=== PATIENT | female | born 1940 | race Caucasian/White ===

== ENCOUNTER → 2017-08-21 | Outpatient (CLI) | payer MEDICARE ==
[~2017-08-21] MED LIST: ASCO10004 PO; ASPI81CH6 CHEW; ASPI81TA82 PO; BIOT10TA PO; CALC500 PO; D400400C PO; DULO1CAP PO; FERR325T18 PO; FOLI1 PO; FOLI800T PO; MAGN400T2 PO; MELO15TA20 PO; METH500T3 PO; METO25TA3 PO; METO50TA PO; PANT40TA3 PO; PROT40TA PO; QUET25 PO; VITA10002 PO; VITA500T4 PO
== END ==
LOC: HRAD 10:52
PROVIDERS: ATTEND Family Medicine
DX: Z00.8 Encounter for other general examination (principal)

== ENCOUNTER 2017-08-22 06:59 | Day surgery (SDC) | payer MEDICARE ==
[~2017-08-22] VITALS: Ht 157.5 cm; Wt 47.3 kg
[~2017-08-22 06:59] MED LIST changes: -ASPI81CH6 CHEW; -BIOT10TA PO; -DULO1CAP PO; -FERR325T18 PO; -FOLI800T PO; -MAGN400T2 PO; -MELO15TA20 PO; -METH500T3 PO; -METO25TA3 PO; -PANT40TA3 PO; -VITA500T4 PO
[2017-08-22] MEDS ORDERED: VITA500T4 PO (07:32)
[2017-08-22] MEDS ORDERED: BIOT10TA PO (07:34)
[2017-08-22 07:35] VITALS: BP 144/98; PULSE 62; RESP 18; TEMP 97.8; O2SAT 94
[2017-08-22] MEDS ORDERED: FERR325T18 PO (07:35)
[2017-08-22] MEDS ORDERED: DULO1CAP PO (07:36)
[2017-08-22] MEDS ORDERED: FOLI800T PO (07:37)
[2017-08-22] MEDS ORDERED: METH500T3 PO (07:38)
[2017-08-22] MEDS ORDERED: MELO15TA20 PO (07:39)
[2017-08-22] MEDS ORDERED: PANT40TA3 PO (07:40)
[2017-08-22] MEDS ORDERED: ASPI81CH6 CHEW (07:40)
[2017-08-22] MEDS ORDERED: METO25TA3 PO (07:42)
[2017-08-22] MEDS ORDERED: MAGN400T2 PO (07:43)
[2017-08-22] MEDS ORDERED: LACTATED RINGER'S 1000 ML IV PRN (07:45)
[2017-08-22] MEDS ORDERED: CHLORHEXIDINE GLUCONATE 2 % 1 PACK (2 CLOTHS) TOPICAL PRN (07:45)
[2017-08-22] MEDS ORDERED: METOPROLOL TARTRATE 25 MG TAB PO PRN (07:45)
[2017-08-22] MEDS ORDERED: SODIUM CHLORID 0.9% 500 ML IV PRN (07:45)
[2017-08-22] MEDS ORDERED: ceFAZolin 2 GM PREMIX 50 ML IV SCH (07:45)
[2017-08-22] MEDS ORDERED: SODIUM CHLOR 0.9% 1000 ML INJ 1,000 ML IV SCH (08:00)
[2017-08-22 08:57] LABS: BICARBONATE 25.4 MEQ/L (21.0-32.0); CALCIUM 8.7 MG/DL (8.5-10.1); CREATININE 0.66 MG/DL (0.50-1.00)
[2017-08-22 09:44] LABS: AUTOMATED NEUTROPHIL # 2.1 TH/MM3 (1.8-7.7); BASOPHIL % 1.1 % (0.0-2.0); EOSINOPHIL # 0.2 TH/MM3 (0-0.4); EOSINOPHIL % 3.9 % (0.0-4.0); HEMATOCRIT 43.1 % (35.0-46.0); HEMOGLOBIN 14.2 GM/DL (11.6-15.3); LYMPH % 31.6 % (9.0-44.0); LYMPHOCYTE # 1.3 TH/MM3 (1.0-4.8); MEAN CELL VOLUME 103.6 FL (80.0-100.0); MEAN CORPUSCULAR HEMOGLOBIN 34.2 PG (27.0-34.0); MEAN PLATELET VOLUME 8.1 FL (7.0-11.0); MONO % 12.4 % (0.0-8.0); MONOCYTE # 0.5 TH/MM3 (0-0.9); PLATELET COUNT 252 TH/MM3 (150-450); RED BLOOD COUNT 4.16 MIL/MM3 (4.00-5.30); WHITE BLOOD COUNT 4.2 TH/MM3 (4.0-11.0)
[2017-08-22] MEDS ORDERED: fentaNYL CITRATE 250 MCG/5 ML AMP ONE (09:55)
--- NOTE | 2017-08-22 12:02 | PD.RAD ---
Post Procedure Progress Note Pre Procedure Diagnosis: (1) Compression fracture of body of thoracic vertebra Post Procedure Diagnosis: (1) Compression fracture of body of thoracic vertebra Procedure Date: Aug 22, 2017 Supervising Radiologist: Darwin Jacobson Anesthesia: General Plan of Activity Patient to Unit: PACU Patient Condition: Good See PACS Report for procedural detail/treatment Darwin Jacobson MD Aug 22, 2017 12:02
--- NOTE | 2017-08-22 12:06 | RADRPT ---
EXAM DATE/TIME: 08/22/2017 09:44 [facility] COMPARISON: No previous studies available for comparison. INDICATIONS : Patient needs access for labs and Kyphoplasty. MEDICAL HISTORY : ETOH 2. cirrohis 3. liver failure 4. compression fxs of spine. SURGICAL HISTORY : 1. C section 2. ORIF ENCOUNTER: Initial ACUITY: 1 day PAIN SCORE: 0/10 IMAGE SERIES: 1 ACCESS: Right brachial vein DEVICE(S): 1.) 3/4 Togolese Dilator PROCEDURE : 1. Ultrasound guided venous access. The risks, benefits and alternatives to the procedure were explained and verbal and written consent w as obtained. The site was prepped in sterile fashion. Full sterile technique was used, including ca p, mask, sterile gloves and gown and a large sterile sheet. Hand hygiene and 2% chlorhexidine and/or betadine/alcohol prep was utilized per protocol for cutaneous antisepsis. Sterile gel and sterile p robe cover were utilized for ultrasound guidance. The skin and subcutaneous tissues were infiltrate d with local anesthetic solution. With ultrasound guidance the prescribed vein was punctured for venous access. A 4 Togolese dilator was placed and was flushed and locked with heparin. The patient tolerated procedure well and there were n o complications. CONCLUSION: Uncomplicated ultrasound guided venous access. Darwin Jacobson MD on August 22, 2017 at 12:04 Board Certified Radiologist. This report was verified electronically.
--- NOTE | 2017-08-22 12:06 | RADRPT ---
EXAM DATE/TIME: 08/22/2017 09:42 [facility] COMPARISON: KYPHOPLASTY, FLUORO GUIDED, August 22, 2017, 0:00. INDICATIONS : Patient with history of fractures of T6 and T8. MEDICAL HISTORY : 1. ETOH 2. cirrohsis 3. Former smoker 4. liver failure SURGICAL HISTORY : 1. c section 2. ORIF ENCOUNTER: Initial ACUITY: 2 months PAIN SCORE: 3/10 LOCATION: back FLUORO TIME: 13.8 minutes IMAGE SERIES: 0 LEVEL: T6 T8 Prophylactic antibiotics were administered with appropriate pre-procedure timing. DEVICE: 1. 9 cc AVAMax bone cement Anesthesia and pain control was provided by the Anesthesia department. PROCEDURE : 1. Fluoroscopically-guided T6 and T8 kyphoplasty The risks, benefits and alternatives to the procedure were explained and verbal and written consent w as obtained. The site was prepped in sterile fashion. Full sterile technique was used, including ca p, mask, sterile gloves and gown and a large sterile sheet. Hand hygiene and 2% chlorhexidine and/or betadine/alcohol prep was utilized per protocol for cutaneous antisepsis. The skin and subcutaneous tissues were infiltrated with local anesthetic solution. With fluoroscopic guidance via the above described approach access was gained to the vertebral body a t T6 and T8. Kyphoplasty was performed with cavity creation as above. The prescribed cement volume was placed. Post procedure images demonstrate cement confined to the vertebral body. Conscious sedation was performed with the prescribed dosages and duration as above in the presence of an independent trained radiology nurse to assist in the monitoring of the patient. EKG and oximetry remained stable throughout the procedure. The patient tolerated the procedure well and there were n o complications. The patient was sent to post anesthesia recovery in stable condition. CONCLUSION: Uncomplicated T6 and T8 kyphoplasty as above. Darwin Jacobson MD on August 22, 2017 at 12:02 Board Certified Radiologist. This report was verified electronically.
[2017-08-22] MEDS ORDERED: DO NOT ADM ANY ANTICOAGULANT DRUGS PRN (12:07)
[2017-08-22 12:50] VITALS: BP 139/87; PULSE 64; RESP 18; TEMP 97.5; O2SAT 95
[2017-08-22 13:05] VITALS: BP 114/66; PULSE 63; RESP 18
[2017-08-22 13:35] VITALS: BP 141/84; PULSE 56; RESP 18; O2SAT 93
--- NOTE | 2017-08-22 20:55 | EKG ---
Date Performed: 08/22/2017 Time Performed: 07:44:31 PTAGE: 77 years EKG: Sinus rhythm LOW QRS VOLTAGE IN PRECORDIAL LEADS RIGHT BUNDLE BRANCH BLOCK RBBB IS NEW COMPARED TO PRIOR TRACING ABNORMAL ECG PREVIOUS TRACING : 03/24/2015 15.13 DOCTOR: Jeremi Rivas Interpretating Date/Time 08/22/2017 20:53:40
== END 2017-08-22 14:30 | disposition home or self-care (01) ==
LOC: HROP 06:59 → HRIP 07:00 → HROP 14:30
PROVIDERS: ATTEND Family Medicine
DX: S22.050A Wedge compression fracture of T5-T6 vertebra, initial encounter for closed fracture (principal); S22.060A Wedge compression fracture of T7-T8 vertebra, initial encounter for closed fracture; K72.90 Hepatic failure, unspecified without coma; K74.60 Unspecified cirrhosis of liver; F10.10 Alcohol abuse, uncomplicated; Z87.891 Personal history of nicotine dependence; Z01.818 Encounter for other preprocedural examination; Z01.810 Encounter for preprocedural cardiovascular examination
CPT/HCPCS: 01936; 22513; 22515; 76937; 80048; 85025; 93005; J3010; J7030

== ENCOUNTER 2017-09-18 13:03 | Day surgery (SDC) | payer MEDICARE ==
[~2017-09-18 13:03] MED LIST changes: -ASCO10004 PO; +ASPI81CH6 CHEW; -ASPI81TA82 PO; +BIOT10TA PO; -CALC500 PO; -D400400C PO; +DULO1CAP PO; +FERR325T18 PO; -FOLI1 PO; +FOLI800T PO; +MAGN400T2 PO; +MELO15TA20 PO; +METH500T3 PO; +METO25TA3 PO; -METO50TA PO; +PANT40TA3 PO; -PROT40TA PO; -QUET25 PO; -VITA10002 PO; +VITA500T4 PO
[2017-09-18 13:45] VITALS: BP 110/73; PULSE 77; RESP 18; TEMP 98; O2SAT 97
--- NOTE | 2017-09-18 16:47 | RADRPT ---
EXAM DATE/TIME: 09/18/2017 13:49 [facility] COMPARISON : No previous studies available for comparison. INDICATIONS : f/u kyphoplasty OBJECTIVE: Temperature: 98.0 Heart Rate: 77 Blood Pressure: 110/73 Respiratory: 18 Oximetry: 97 PNEUMONIA VACCINE: HISTORY OF PRESENT ILLNESS: 77-year-old female with history of T6 and T8 compression fractures status post kyphoplasty on 08/23/19 18. Patient reports progressive back pain at the bra line level despite the kyphoplasty. She denies a ny radiculopathy. No bowel or urinary incontinence. On physical examination she has moderate tenderne ss in the mid to upper thoracic spine roughly corresponding to T7 spinous process. ASSESSMENT: 77-year-old female with osteoporosis and T6 and T8 compression fractures status post kyphoplasty with persistent pain. She has moderate tenderness in the mid to upper thoracic spine corresponding to rou ghly T7 spinous process. Pain concern that she had an interval acute adjacent level compression fract ure. Will request MRI examination of the thoracic spine for further evaluation. PLAN: MRI thoracic spine to evaluate for interval acute thoracic spine fracture. TIME SPENT: 15 minutes. Darwin Jacobson MD on September 18, 2017 at 16:41 Board Certified Radiologist. This report was verified electronically.
== END 2017-09-18 14:45 | disposition home or self-care (01) ==
LOC: HROP 13:03 → HRIP 13:04 → HROP 14:45
PROVIDERS: ATTEND Radiology Diagnostic Radiology
DX: Z09 Encounter for follow-up examination after completed treatment for conditions other than malignant neoplasm (principal)

== ENCOUNTER 2017-12-15 14:37 | Inpatient (IN) ==
[2017-12-15] MEDS ORDERED: Sod Chloride 0.9% Inj 1,000 ML IV.SIG ONE (15:39)
[2017-12-15] MEDS ORDERED: Thiamine Inj 100 MG in Sodium Chlor 0.9% Inj 100 ML IV.SIG ONE (15:40)
--- NOTE | 2017-12-15 15:55 | ED ---
HPI General Chief complaint: Alcohol Stated complaint: ETOH Time Seen by Provider: 12/15/17 15:39 Source: patient Mode of arrival: ambulatory Limitations: no limitations History of Present Illness HPI narrative: 77yo F with PMH of alcohol abuse was brought in by EVAC for alcohol intoxication. As per EVAC, pt drank 7 vodka and could not get her to come into the house so he called [facility]. Pt denies any head trauma or fall. Pt was seen by Dr. Wood for her left hand ulcer and has a follow up with specialist. Pt now complains of right 3rd digit pain for 2 weeks. Pt is clinically intoxicated but moves all extremities. Pt tells the medical staff to go away. History is limited secondary to alcohol intoxication. Related Data Allergies Allergy/AdvReac Type Severity Reaction Status Date / Time Iodinated Contrast- Oral and Allergy Severe Unverified 09/18/17 13:46 IV Dye oxytocin Allergy Severe Unverified 09/18/17 13:46 Review of Systems ROS Unobtainable All other systems reviewed negative except as stated in HPI [facility] Medical History Medical History Medical history unknown (Acute) Social History Social History Substance History: Active Abuse Second Hand Smoke Exposure: No Smoking Status: Never smoker Tobacco Type: Cigarettes How Often Do You Have a Drink Containing Alcohol: 4 or more times a week Recent Travel in [facility] within the Last 8 Weeks: No Recent Out of Country Travel within the Last 8 Weeks: No Substance Abuse Detail Alcohol: Substance Use Status: Active Route Used Substance Abuse: By Mouth Immunization History Tetanus Immunization: Unable to Assess Hx Influenza Vaccine This Season: Unable to Assess Exam Narrative Exam Narrative: GENERAL: 77yo F intoxicated. SKIN: Focused skin assessment warm/dry. HEAD: Atraumatic. Normocephalic. EYES: Pupils equal and round at 4mm bilaterally. ENT: No nasal bleeding or discharge. Mucous membranes pink and moist. NECK: Trachea midline. No JVD. CARDIOVASCULAR: Regular rate and rhythm. No murmur appreciated. RESPIRATORY: No accessory muscle use. Clear to auscultation. Breath sounds equal bilaterally. GASTROINTESTINAL: Abdomen soft, non-tender, nondistended. MUSCULOSKELETAL: Right hand: +Discoloration in distal 3rd digit with ttp. Radial pulse 2+. Sensation intact. Left hand: +left 3rd digit ulcer with black eschar. Discoloration distal digits 3-5. Radial pulse not palpable, EVAC said that is old. NEUROLOGICAL: Awake and alert. No obvious cranial nerve deficits. Motor grossly within normal limits. Normal speech. PSYCHIATRIC: Appropriate mood and affect; insight and judgment normal. Course Initial Documented Vital Signs Temperature 98.9 F 12/15/17 15:28 Pulse Rate 96 H 12/15/17 15:28 Respiratory Rate 16 12/15/17 15:28 Blood Pressure 84/57 L 12/15/17 15:28 Last Documented Vital Signs Temperature 98.8 F 12/15/17 17:42 Pulse Rate 89 12/15/17 17:42 Respiratory Rate 16 12/15/17 17:42 Blood Pressure 119/78 12/15/17 17:42 Pulse Oximetry 100 12/15/17 17:42 Medical Decision Making MDM Narrative Medical decision making narrative: 77yo F was brought in as alcohol intoxication. Pt has left hand ulcer and discoloration that the EVAC said is old and has been work up. Pt was complaining of right hand pain today and xray right hand showed no acute findings. Pt initially was verbally aggressive and did not want a full exam but then later on allowed me to examine her. She is clinically intoxicated. Labs reviewed, no leukocytosis. Glucose is low at 45. Pt given juice. Blood alcohol is elevated at 352. Discussed with Dr. Wood who knows patient well and he reviewed her record and said that she saw Cristiane [employer] on 12/08/17 in emergency clinic and was referred urgently to Dr. Odonnell from vascular surgery the next time because she was concern about her left hand. Pt said she has gangrene. Unknown how reliable this is. Discussed with Dr. Wood and he recommends admission and vascular consult given pt is unreliable and this may be limb threatening. Discussed with Dr. Garza and accepted to his service. Differential Diagnosis Differential Diagnosis: Alcohol intoxication vs. peripheral vascular disease vs. raynaud syndrome vs. ischemic ulcer Lab Data Result diagrams: 12/15/17 15:19 12/15/17 15:19 Lab Results 12/15/17 12/15/17 12/15/17 Range/Units 15:19 15:19 17:51 WBC 7.0 (4.0-11.0) th/mm3 RBC 2.70 L (4.00-5.30) mil/mm3 Hgb 9.8 L (11.6-15.3) gm/dL Hct 28.0 L (35.0-46.0) % MCV 103.8 H (80.0-100.0) fL MCH 36.2 H (27.0-34.0) pg MCHC 34.9 (32.0-36.0) % RDW 15.9 (11.6-17.2) % Plt Count 195 (150-450) th/mm3 MPV 8.3 (7.0-11.0) fL Neut % (Auto) 60.5 (16.0-70.0) % Lymph % (Auto) 26.1 (9.0-44.0) % Lamb % (Auto) 10.7 H (0.0-8.0) % Eos % (Auto) 1.7 (0.0-4.0) % Baso % (Auto) 1.0 (0.0-2.0) % Neut # (Auto) 4.2 (1.8-7.7) th/mm3 Lymph # (Auto) 1.8 (1.0-4.8) th/mm3 Lamb # (Auto) 0.7 (0.0-0.9) th/mm3 Eos # (Auto) 0.1 (0.0-0.4) th/mm3 Baso # (Auto) 0.1 (0.0-0.2) th/mm3 WBC Differential . Differential Comment Auto diff final Sodium 138 (136-145) meq/L Potassium 4.4 (3.5-5.1) meq/L Chloride 101 (98-107) meq/L Carbon Dioxide 20.7 L (21.0-32.0) meq/L Anion Gap 16 H (5-15) meq/L BUN 12 (7-18) mg/dL Creatinine 0.76 (0.50-1.00) mg/dL Estimated GFR 74 L (>89) mL/min POC Glucose 56 L (68-110) mg/dl Random Glucose 45 L* (74-106) mg/dL Calcium 7.9 L (8.5-10.1) mg/dL Magnesium 1.5 (1.5-2.5) mg/dL Serum Alcohol 352 H (0-5) mg/dL 12/15/17 Range/Units 18:52 WBC (4.0-11.0) th/mm3 RBC (4.00-5.30) mil/mm3 Hgb (11.6-15.3) gm/dL Hct (35.0-46.0) % MCV (80.0-100.0) fL MCH (27.0-34.0) pg MCHC (32.0-36.0) % RDW (11.6-17.2) % Plt Count (150-450) th/mm3 MPV (7.0-11.0) fL Neut % (Auto) (16.0-70.0) % Lymph % (Auto) (9.0-44.0) % Lamb % (Auto) (0.0-8.0) % Eos % (Auto) (0.0-4.0) % Baso % (Auto) (0.0-2.0) % Neut # (Auto) (1.8-7.7) th/mm3 Lymph # (Auto) (1.0-4.8) th/mm3 Lamb # (Auto) (0.0-0.9) th/mm3 Eos # (Auto) (0.0-0.4) th/mm3 Baso # (Auto) (0.0-0.2) th/mm3 WBC Differential Differential Comment Sodium (136-145) meq/L Potassium (3.5-5.1) meq/L Chloride (98-107) meq/L Carbon Dioxide (21.0-32.0) meq/L Anion Gap (5-15) meq/L BUN (7-18) mg/dL Creatinine (0.50-1.00) mg/dL Estimated GFR (>89) mL/min POC Glucose 108 (68-110) mg/dl Random Glucose (74-106) mg/dL Calcium (8.5-10.1) mg/dL Magnesium (1.5-2.5) mg/dL Serum Alcohol (0-5) mg/dL Imaging Data Radiologist's impression: Hand X-Ray 12/15/17 15:50 CONCLUSION: No acute findings. Mild to moderate degenerative disc disease. Discharge Plan Discharge Disposition Patient Disposition: 30 Still Patient Physicians Team ED Provider: Jenny Epperson Primary Care Provider: Daniel Wood Attending Provider: Boyd Frias Status ED Status: Left Department Discharge Information Discharge Date/Time: 12/15/17 20:05
[2017-12-15] MEDS ORDERED: Acetaminophen 500 MG Tablet PO ONE (16:08)
--- NOTE | 2017-12-15 16:13 | XR ---
EXAM DATE: 12/15/2017 4:09 PM EDT AGE/SEX: 77 years / Female INDICATIONS: Sore right 3rd digit. CLINICAL DATA: This is the patient's initial encounter. Patient reports that signs and symptoms have been present for 1 day and indicates a pain score of Nonresponsive. MEDICAL/SURGICAL HISTORY: . pt seemed confused, unable to obtain. . unable to obtain. COMPARISON: No prior exams available for comparison. FINDINGS: Bony structures are intact and in normal alignment. Osseous density is normal. Soft tissues are unre markable. No radiopaque foreign bodies seen. CONCLUSION: No acute findings. Mild to moderate degenerative disc disease. Electronically signed by: Wolf Burris MD 12/15/2017 4:11 PM EDT
[2017-12-15 16:36] LABS: Baso # (Auto) 0.1 th/mm3 (0.0-0.2); Eos # (Auto) 0.1 th/mm3 (0.0-0.4); Eos % (Auto) 1.7 % (0.0-4.0); Hemoglobin 9.8 gm/dL (11.6-15.3); Lymph # (Auto) 1.8 th/mm3 (1.0-4.8); Lymph % (Auto) 26.1 % (9.0-44.0); Mean Corpuscular HGB Conc 34.9 % (32.0-36.0); Mean Corpuscular Hemoglobin 36.2 pg (27.0-34.0); Mean Corpuscular Volume 103.8 fL (80.0-100.0); Mean Platelet Volume 8.3 fL (7.0-11.0); Mono # (Auto) 0.7 th/mm3 (0.0-0.9); Mono % (Auto) 10.7 % (0.0-8.0); Neut # (Auto) 4.2 th/mm3 (1.8-7.7); Neut % (Auto) 60.5 % (16.0-70.0); Platelet Count 195 th/mm3 (150-450); Red Cell Distribution Width 15.9 % (11.6-17.2)
[2017-12-15 16:48] LABS: Calcium 7.9 mg/dL (8.5-10.1); Carbon Dioxide 20.7 meq/L (21.0-32.0); Magnesium 1.5 mg/dL (1.5-2.5); Potassium 4.4 meq/L (3.5-5.1)
[2017-12-15] MEDS ORDERED: Ketorolac Inj 30 MG/ML (IVP) Vial IV.PUSH ONE (17:20)
--- NOTE | 2017-12-15 19:03 | P.HPIM ---
History of Present Illness Service: Pt is 77 yo female with hx etoh abuse brought to ED intoxicated. ED tells me the called the ambulance when she wouldn't come into the house. She says she has been drinking vodka but nonspecific about amt's. Pt crying and asking for her . She complaints of pain in bilateral hands. She was seen in [facility] urgent care clinic on December 08 for pain involving her fingers bilaterally. At that time there were concerns for vascular problem and noted burning and stinging and some redness with ulceration over the left middle fingertip and right middle fingertip with some skin sloughing. pt was given referral but apparently hasn't seen a vascular doctor. she had c/o pain and ulcerations for up to 4 weeks prior to seeing urgent care. presented to ED hypotensive and hypoglycemic. PMH: svt htn anxiety thrombocytopenia fattly liver gastric ulcers etoh abuse left hip fx. orif. vit d def depression b12 def bronchiectasis cholelithiasis hyperlipidemia ventral hernia breast bx c sectiion craniotomy hernia repair exp lap small bowel resection t6 and t8 vertebral augmentation compression fx's thoracic spine. MEDS: alendronate 70mg weekly asa 81mg daily biotin 5000mcg bid duloxetine 20mg daily FA 1mg daily [facility] 5 tid prn mag oxide 400mg daily meloxicam 15mg daily methocarbamol 500mg tid prn metoprolol 25mg bid zofran q6hr prn protonix 40mg daily quetiapine 25mg 1/2 qhs theragran vit b12 DAILY VIT D Primary Care Physician: Dainel Wood MD, PhD - Diagnosis (1) Ischemic finger ulcer (2) ETOH abuse Review of Systems intoxicated c/o bilateral pain in her fingers. [facility] - History History Provided By: Patient - Medical History Medical History: Medical History (Last Updated 12/15/17 @ 15:36 by Jessica Wilson) Medical history unknown - Tobacco History Second Hand Smoke Exposure: No Tobacco Use In Past 30 Days: No Smoking Status: Never smoker Tobacco Type: Cigarettes - Alcohol History How Often Do You Have a Drink Containing Alcohol: 4 or more times a week - Substance Use History Substance History: Active Abuse - Substance Use Type Alcohol Status: Active Route Used: By Mouth - Travel History Recent Travel in the [place] Within the Last 8 Weeks: No Recent Travel Out of the Country Within the Last 8 Weeks: No - Immunization History Tetanus Immunization: Unable to Assess Hx Influenza Vaccine This Season: Unable to Assess Medications and Allergies Allergies Allergy/AdvReac Type Severity Reaction Status Date / Time Iodinated Contrast- Oral and Allergy Severe Unverified 09/18/17 13:46 IV Dye oxytocin Allergy Severe Unverified 09/18/17 13:46 Exam Vital signs: Vital Signs 12/15/17 15:28 12/15/17 17:42 Temperature 98.9 F 98.8 F Pulse Rate 96 H 89 Respiratory Rate 16 16 Blood Pressure 84/57 L 119/78 Pulse Oximetry 100 crying asking for her heart reg lung cta abd s/nt ext mild pedal edema left hand: ulceration noted over middle fingertip with surrounding purplish discoloration. second/third/fourth fingertip/nail with purplish discoloration right hand:purple discoloration over right second/third/fourth fingertips ...mostly middle. tender to palpation. palpable radial pulses bilaterally. feet mild mottling and edema. nontender. Results - Labs CBC & Chem 7: 12/15/17 15:19 12/15/17 15:19 Labs: Short CBC 12/15/17 Range/Units 15:19 WBC 7.0 (4.0-11.0) th/mm3 Hgb 9.8 L (11.6-15.3) gm/dL Hct 28.0 L (35.0-46.0) % Plt Count 195 (150-450) th/mm3 BMP 12/15/17 15:19 Sodium 138 Potassium 4.4 Chloride 101 Carbon Dioxide 20.7 L BUN 12 Creatinine 0.76 Calcium 7.9 L - Imaging Impressions Hand X-Ray 12/15/17 15:50 CONCLUSION: No acute findings. Mild to moderate degenerative disc disease. Caprini VTE Risk Assessment Caprini VTE Risk Assessment: Moderate/High Risk (score >= 2) Caprini Risk Assessment Model: Point Value = 1 Point Value = 2 Point Value = 3 Point Value = 5 Age 41-60 Minor surgery BMI > 25 kg/m2 Swollen legs Varicose veins or History of unexplained or recurrent spontaneous Oral contraceptives or hormone replacement Sepsis (< 1 month) Serious lung disease, including pneumonia (< 1 month) Abnormal pulmonary function Acute myocardial infarction Congestive heart failure (< 1 month) History of inflammatory bowel disease Medical patient at bed rest Age 61-74 Arthroscopic surgery Major open surgery (> 45 min) Laparoscopic surgery (> 45 min) Malignancy Confined to bed (> 72 hours) Immobilizing plaster cast Central venous access Age >= 75 History of VTE Family history of VTE Factor V Leiden Prothrombin [id number] Lupus anticoagulant Anticardiolipin antibodies Elevated serum homocysteine Heparin-induced thrombocytopenia Other congenital or acquired thrombophilia Stroke (< 1 month) Elective arthroplasty Hip, pelvis, or leg fracture Acute spinal cord injury (< 1 month) Prophylaxis Regimen: Total Risk Factor Score Risk Level Prophylaxis Regimen 0-1 Low Early ambulation 2 Moderate Order ONE of the following: *Sequential Compression Device (SCD) *Heparin 5000 units SQ BID 3-4 Higher Order ONE of the following medications: *Heparin 5000 units SQ TID *Enoxaparin/Lovenox 40 mg SQ daily (WT < 150 kg, CrCl > 30 mL/min) *Enoxaparin/Lovenox 30 mg SQ daily (WT < 150 kg, CrCl > 10-29 mL/min) *Enoxaparin/Lovenox 30 mg SQ BID (WT < 150 kg, CrCl > 30 mL/min) AND/OR *Sequential Compression Device (SCD) 5 or more Highest Order ONE of the following medications: *Heparin 5000 units SQ TID (Preferred with Epidurals) *Enoxaparin/Lovenox 40 mg SQ daily (WT < 150 kg, CrCl > 30 mL/min) *Enoxaparin/Lovenox 30 mg SQ daily (WT < 150 kg, CrCl > 10-29 mL/min) *Enoxaparin/Lovenox 30 mg SQ BID (WT < 150 kg, CrCl > 30 mL/min) AND *Sequential Compression Device (SCD) Assessment and Plan - Assessment (1) Ischemic finger ulcer Code(s): L98.499 - Non-pressure chronic ulcer of skin of other sites with unspecified severity Status: Acute Plan: 1. Left 3rd finger ulceration and findings of bilateral 2nd/3rd/4rth fingertip ischemic changes and discoloration with associated pain/sensitivity. etiology unclear. initially seen on December 08 urgent care and gave hx of ongoing symptoms x 4 weeks. etiology?...pt doesn't seem right age group for thomboangiitis obliterans. and not smoking. could consider collegen vascular dz/crest/raynaud type phenomenon. Peripheral vascular disease is considered but would seem odd to present bilaterally and symmetrically. r/o hypercoagulable conditions also. consult vascular surgery. lab w/up. esr, yasir, complements,scl 70, rheumatoid factor, some hypercoag labs. pain control 2. etoh intoxication/abuse. will place pt on ciwa protocol in AM. IVF. PT eval in AM dvt prophylaxis (2) ETOH abuse Code(s): F10.10 - Alcohol abuse, uncomplicated Status: Acute
[2017-12-15] MEDS ORDERED: Metoprolol Tartrate 25 MG Tablet PO SCH (21:00)
[2017-12-15] MEDS: Metoprolol Tartrate 25 MG Tablet PO SCH (23:00)
[2017-12-15] MEDS: QUEtiapine 25 MG Tablet PO SCH (23:01)
[2017-12-15] MEDS: Dextrose 5%/NaCl 0.9% Inj 1,000 ML IV.CONT SCH (23:02)
[2017-12-16 05:51] LABS: Anion Gap 7 meq/L (5-15); Blood Urea Nitrogen 11 mg/dL (7-18); Calcium 7.4 mg/dL (8.5-10.1); Carbon Dioxide 26.8 meq/L (21.0-32.0); Chloride 106 meq/L (98-107); Complement C3 54 mg/dL (90-180); Glomerular Filtration Rate Greater Than 89 mL/min (>89); Glucose,Random 105 mg/dL (74-106); Sodium 140 meq/L (136-145)
[2017-12-16] MEDS ORDERED: LORazepam 1 MG Tablet PO PRN (07:36)
--- NOTE | 2017-12-16 08:44 | P.PNIM ---
Subjective Interval history: Follow up Ischemic finger ulcer and ETOH intoxication/abuse Patient resting in bed able to awake to voice offers no new concerns/complaints looking forward to vascular consult Physical Exam Vital signs: Vital Signs 12/15/17 15:28 12/15/17 17:42 12/15/17 20:00 Temperature 98.9 F 98.8 F 98.3 F Pulse Rate 96 H 89 110 H Respiratory Rate 16 16 19 Blood Pressure 84/57 L 119/78 130/86 Pulse Oximetry 100 12/16/17 00:00 12/16/17 02:57 12/16/17 04:00 Temperature 98.2 F 98.6 F Pulse Rate 83 79 76 Respiratory Rate 17 16 Blood Pressure 114/69 110/66 105/57 L Pulse Oximetry 12/16/17 08:00 Temperature 98.3 F Pulse Rate 78 Respiratory Rate 16 Blood Pressure 122/75 Pulse Oximetry 94 L Intake & Output 12/15/17 12/16/17 12/16/17 18:59 06:59 18:59 Intake Total 1101 / 1101 Balance 1101 / 1101 Intake: IV 1101 / 1101 NS Inj 1,000 ML @ Wide Open IV. 1000 / 1000 SIG BOLUS ONE Rx#:[id number] Thiamine Inj 100 MG In NS Inj 101 / 101 100 ML @ 100 mls/hr IV.SIG ONCE ONE Rx#:[id number] Other: Date of Last Bowel Movement 12/15/17 Narrative: GENERAL: This is a well-nourished, well-developed patient, in no apparent distress. SKIN: left hand: ulceration noted over middle fingertip with surrounding purplish discoloration. second/third/fourth fingertip/nail with purplish discoloration right hand:purple discoloration over right second/third/fourth fingertips ...mostly middle. tender to palpation. palpable radial pulses bilaterally. feet mild mottling and edema. nontender. CARDIOVASCULAR: Regular rate and rhythm RESPIRATORY: Clear to auscultation. Breath sounds equal bilaterally. GASTROINTESTINAL: Abdomen soft, non-tender, nondistended. Normal active bowel sounds MUSCULOSKELETAL: mild pedal edema NEURO: Alert & Oriented. Moves all ext x4 Results - Labs CBC & Chem 7: 12/15/17 15:19 12/16/17 04:47 Laboratory Results - last 24 hr 12/15/17 12/15/17 12/15/17 15:19 15:19 17:51 WBC 7.0 RBC 2.70 L Hgb 9.8 L Hct 28.0 L MCV 103.8 H MCH 36.2 H MCHC 34.9 RDW 15.9 Plt Count 195 MPV 8.3 Neut % (Auto) 60.5 Lymph % (Auto) 26.1 Marin % (Auto) 10.7 H Eos % (Auto) 1.7 Baso % (Auto) 1.0 Neut # (Auto) 4.2 Lymph # (Auto) 1.8 Marin # (Auto) 0.7 Eos # (Auto) 0.1 Baso # (Auto) 0.1 WBC Differential . Differential Comment Auto diff final ESR Sodium 138 Potassium 4.4 Chloride 101 Carbon Dioxide 20.7 L Anion Gap 16 H BUN 12 Creatinine 0.76 Estimated GFR 74 L POC Glucose 56 L Random Glucose 45 L* Calcium 7.9 L Prot Corrected Calcium Magnesium 1.5 Total Protein Serum Alcohol 352 H Rheumatoid Factor Scrn Rheumatoid Factor Titer Complement C3 Complement C4 12/15/17 12/16/17 12/16/17 18:52 03:01 04:47 WBC RBC Hgb Hct MCV MCH MCHC RDW Plt Count MPV Neut % (Auto) Lymph % (Auto) Marin % (Auto) Eos % (Auto) Baso % (Auto) Neut # (Auto) Lymph # (Auto) Marin # (Auto) Eos # (Auto) Baso # (Auto) WBC Differential Differential Comment ESR 20 Sodium Potassium Chloride Carbon Dioxide Anion Gap BUN Creatinine Estimated GFR POC Glucose 108 105 Random Glucose Calcium Prot Corrected Calcium Magnesium Total Protein Serum Alcohol Rheumatoid Factor Scrn Rheumatoid Factor Titer Complement C3 Complement C4 12/16/17 04:47 WBC RBC Hgb Hct MCV MCH MCHC RDW Plt Count MPV Neut % (Auto) Lymph % (Auto) Marin % (Auto) Eos % (Auto) Baso % (Auto) Neut # (Auto) Lymph # (Auto) Marin # (Auto) Eos # (Auto) Baso # (Auto) WBC Differential Differential Comment ESR Sodium 140 Potassium 4.0 Chloride 106 Carbon Dioxide 26.8 Anion Gap 7 BUN 11 Creatinine 0.56 Estimated GFR Greater than 89 POC Glucose Random Glucose 105 Calcium 7.4 L* Prot Corrected Calcium 8.6 Magnesium Total Protein 5.0 L Serum Alcohol Rheumatoid Factor Scrn Negative Rheumatoid Factor Titer Not Reportable Complement C3 54 L Complement C4 18 - Imaging Impressions Hand X-Ray 12/15/17 15:50 CONCLUSION: No acute findings. Mild to moderate degenerative disc disease. Assessment and Plan - Assessment (1) Ischemic finger ulcer Code(s): L98.499 - Non-pressure chronic ulcer of skin of other sites with unspecified severity Status: Acute Plan: 1. Left 3rd finger ulceration and findings of bilateral 2nd/3rd/4rth fingertip ischemic changes and discoloration with associated pain/sensitivity. etiology unclear. initially seen on December 08 urgent care and gave hx of ongoing symptoms x 4 weeks. etiology?...pt doesn't seem right age group for thomboangiitis obliterans. and not smoking. could consider collegen vascular dz/crest/raynaud type phenomenon. Peripheral vascular disease is considered but would seem odd to present bilaterally and symmetrically. r/o hypercoagulable conditions also. consult vascular surgery. lab w/up. esr 20, yasir pending, complement C3 54, complement C4 18,scl 70, rheumatoid factor negative, hypercoag labs pending pain control 2. etoh intoxication/abuse. Start ciwa protocol IVF. PT eval pending dvt prophylaxis The exam, history, and the medical decision-making described in the above note were completed with the assistance of the mid-level provider. I reviewed and agree with the findings presented. I attest that I had a [id number] encounter with the patient on the same day, and personally performed and documented my assessment and findings in the medical record. discussed with Dr Shaw. w/up underway. Hand consulted. (2) ETOH abuse Code(s): F10.10 - Alcohol abuse, uncomplicated Status: Acute
[2017-12-16] MEDS: Aspirin 325 MG Tablet PO SCH (09:20)
[2017-12-16] MEDS: Metoprolol Tartrate 25 MG Tablet PO SCH ×2 (09:21→21:19)
[2017-12-16] MEDS: Folic Acid 1 MG Tablet PO SCH (09:21)
--- NOTE | 2017-12-16 10:17 | P.CONVS ---
History of Present Illness Service: Cardiovascular Consult date: 12/16/17 Reason for Consult: Bilateral 3rd digit (middle finger) ulcerations Primary Care Provider: Daniel Wood MD, PhD Family Provider: Daniel Wood MD, PhD Chief Complaint: Intermittent bilateral hand pain with numbness, tingling and ulcerations History of Present Illness: 77/F awake and alert reported no past medical hx except for a fractured right hip Pt reported she developed hand pain with paresthesias several weeks ago Pt reported she noticed a purplish discoloration to her fingertips with ulcerations to her right and left distal end 3rd digit fingertips that has improved per pt Pt stated this has happened in the past "years ago" and it just went away Pt denied any recent fall or injury to her hands UE warm w/ motor intact Palpable radial pulses noted Review of Systems Constitutional: Denies chills, Denies fever(s) Cardiovascular: Denies chest pain Respiratory: Denies shortness of breath Musculoskeletal: Reports numbness (bilateral hands), Reports tingling ( bilateral hands ) Skin/Breast: Reports change in skin color (bilateral 3rd, 4th and 5th digit fingertips ), Reports new lesions (R/L 3rd digit ), Reports skin ulcer (Dry lesion to LEFT distal end of 3rd digit with eschar) PMFSH - History History Provided By: Patient, Medical Record - Medical History Medical History: Medical History (Last Reviewed 12/16/17 @ 10:04 by Stephanie Walls) Medical history unknown - Tobacco History Second Hand Smoke Exposure: No Tobacco Use In Past 30 Days: No Smoking Status: Former smoker (Quit 5 years ago) Tobacco Type: Cigarettes - Alcohol History How Often Do You Have a Drink Containing Alcohol: 4 or more times a week - Substance Use History Substance History: Active Abuse - Substance Use Type Alcohol Status: Active Route Used: By Mouth - Travel History Recent Travel in the [place] Within the Last 8 Weeks: No Recent Travel Out of the Country Within the Last 8 Weeks: No - Immunization History Tetanus Immunization: Unable to Assess Hx Influenza Vaccine This Season: Unable to Assess Medications and Allergies Allergies Allergy/AdvReac Type Severity Reaction Status Date / Time Iodinated Contrast- Oral and Allergy Severe Unverified 09/18/17 13:46 IV Dye oxytocin Allergy Severe Unverified 09/18/17 13:46 Active Medications: Active Medications Hydrocodone Bitart/Acetaminophen ([place] 7.5/325) 1 tab PO Q4H PRN PRN Reason: pain 3-10 Aspirin (Aspirin) 325 mg PO DAILY [facility] Last Admin: 12/16/17 09:20 Dose: 325 mg Duloxetine HCl (Cymbalta) 20 mg PO DAILY [facility] Last Admin: 12/16/17 09:20 Dose: 20 mg Flumazenil (Romazecon Inj) 0.2 mg IV.PUSH Q1M PRN PRN Reason: OVERSEDATION Folic Acid (Folic Acid) 1 mg PO DAILY [facility] Last Admin: 12/16/17 09:21 Dose: 1 mg Dextrose/Sodium Chloride (D5w/Normal Saline Inj) 1,000 mls @ 70 mls/hr IV.CONT .[id number] [facility] Last Admin: 12/15/17 23:02 Dose: 70 mls/hr Lorazepam (Ativan Inj) 0.5 mg IV.PUSH Q2H PRN PRN Reason: agitation/etoh withdrawal. Last Admin: 12/16/17 02:56 Dose: 0.5 mg Lorazepam (Ativan) 1 mg PO Q4H PRN PRN Reason: for CIWA 8-10 Lorazepam (Ativan) 2 mg PO Q2H PRN PRN Reason: for CIWA 11-14 Lorazepam (Ativan Inj) 2 mg IV.PUSH Q2H PRN PRN Reason: for CIWA 11-14 Lorazepam (Ativan Inj) 2 mg IV.PUSH Q1H PRN PRN Reason: for CIWA 15-20 Lorazepam (Ativan Inj) 2 mg IV.PUSH Q15M PRN PRN Reason: for CIWA > 20 Lorazepam (Ativan Inj) 1 mg IV.PUSH Q4H PRN PRN Reason: for CIWA 8-10 Metoprolol Tartrate (Lopressor) 25 mg PO BID [facility] Last Admin: 12/16/17 09:21 Dose: 25 mg Miscellaneous (Pill Splitter) 1 each OTHER UNSCH PRN PRN Reason: SEE LABEL COMMENTS Pantoprazole Sodium (Protonix) 40 mg PO DAILY [facility] Last Admin: 12/16/17 09:21 Dose: 40 mg Quetiapine Fumarate (Seroquel) 12.5 mg PO [facility] Last Admin: 12/15/17 23:01 Dose: 12.5 mg Thiamine HCl (Vitamin B1) 100 mg PO BID [facility] Last Admin: 12/16/17 09:21 Dose: 100 mg Physical Exam Vital Signs / I&O: Vital Signs 12/15/17 15:28 12/15/17 17:42 12/15/17 20:00 Temperature 98.9 F 98.8 F 98.3 F Pulse Rate 96 H 89 110 H Respiratory Rate 16 16 19 Blood Pressure 84/57 L 119/78 130/86 Pulse Oximetry 100 12/16/17 00:00 12/16/17 02:57 12/16/17 04:00 Temperature 98.2 F 98.6 F Pulse Rate 83 79 76 Respiratory Rate 17 16 Blood Pressure 114/69 110/66 105/57 L Pulse Oximetry 12/16/17 08:00 Temperature 98.3 F Pulse Rate 78 Respiratory Rate 16 Blood Pressure 122/75 Pulse Oximetry 94 L Intake & Output 12/15/17 12/16/17 12/16/17 18:59 06:59 18:59 Intake Total 1101 / 1101 Balance 1101 / 1101 Intake: IV 1101 / 1101 NS Inj 1,000 ML @ Wide Open IV. 1000 / 1000 SIG BOLUS ONE Rx#:[id number] Thiamine Inj 100 MG In NS Inj 101 / 101 100 ML @ 100 mls/hr IV.SIG ONCE ONE Rx#:[id number] Other: Date of Last Bowel Movement 12/15/17 Neuro: GCS 15 CN 2-12 intact Speech clear Neck: No JVD distention Heart: RRR +S1,S2 Lungs: CTA Abdomen: S/NT Vascular: Palpable Radial R/L pulses 2+ Triphasic R/L tobias arch heard via Doppler UE warm w/ motor intact Extremities: LEFT distal 3rd digit with dry ulceration and eschar RIGHT distal 3rd digit with darkening discoloration Laboratory Results - last 24 hr 12/15/17 12/15/17 12/15/17 15:19 15:19 17:51 WBC 7.0 RBC 2.70 L Hgb 9.8 L Hct 28.0 L MCV 103.8 H MCH 36.2 H MCHC 34.9 RDW 15.9 Plt Count 195 MPV 8.3 Neut % (Auto) 60.5 Lymph % (Auto) 26.1 Mcintosh % (Auto) 10.7 H Eos % (Auto) 1.7 Baso % (Auto) 1.0 Neut # (Auto) 4.2 Lymph # (Auto) 1.8 Mcintosh # (Auto) 0.7 Eos # (Auto) 0.1 Baso # (Auto) 0.1 WBC Differential . Differential Comment Auto diff final ESR Sodium 138 Potassium 4.4 Chloride 101 Carbon Dioxide 20.7 L Anion Gap 16 H BUN 12 Creatinine 0.76 Estimated GFR 74 L POC Glucose 56 L Random Glucose 45 L* Calcium 7.9 L Prot Corrected Calcium Magnesium 1.5 Total Protein Serum Alcohol 352 H Rheumatoid Factor Scrn Rheumatoid Factor Titer Complement C3 Complement C4 12/15/17 12/16/17 12/16/17 18:52 03:01 04:47 WBC RBC Hgb Hct MCV MCH MCHC RDW Plt Count MPV Neut % (Auto) Lymph % (Auto) Mcintosh % (Auto) Eos % (Auto) Baso % (Auto) Neut # (Auto) Lymph # (Auto) [place]intosh # (Auto) Eos # (Auto) Baso # (Auto) WBC Differential Differential Comment ESR 20 Sodium Potassium Chloride Carbon Dioxide Anion Gap BUN Creatinine Estimated GFR POC Glucose 108 105 Random Glucose Calcium Prot Corrected Calcium Magnesium Total Protein Serum Alcohol Rheumatoid Factor Scrn Rheumatoid Factor Titer Complement C3 Complement C4 12/16/17 04:47 WBC RBC Hgb Hct MCV MCH MCHC RDW Plt Count MPV Neut % (Auto) Lymph % (Auto) Mc[place]osh % (Auto) Eos % (Auto) Baso % (Auto) Neut # (Auto) Lymph # (Auto) [place]osh # (Auto) Eos # (Auto) Baso # (Auto) WBC Differential Differential Comment ESR Sodium 140 Potassium 4.0 Chloride 106 Carbon Dioxide 26.8 Anion Gap 7 BUN 11 Creatinine 0.56 Estimated GFR Greater than 89 POC Glucose Random Glucose 105 Calcium 7.4 L* Prot Corrected Calcium 8.6 Magnesium Total Protein 5.0 L Serum Alcohol Rheumatoid Factor Scrn Negative Rheumatoid Factor Titer Not Reportable Complement C3 54 L Complement C4 18 Impressions Hand X-Ray 12/15/17 15:50 CONCLUSION: No acute findings. Mild to moderate degenerative disc disease. Assessment and Plan - Plan 77/F with bilateral hand pain, paresthesias and ulcerations to her 3rd digits for a duration of 3W UE warm with motor intact Palpable distal pulses Plan Ordered chest X ray and CTA C/UE Further recommendations to follow once studies are completed Recommend Hand Consult Stephanie Walls DAMASC[facility] [phone] - Attending Attestation Pt seen, examined. Agree with above. Palpable UE pulses and B digital tissue loss. I suspect systemic vasculitis, but need to r/o other causes. Getting CXR (looking for cervical rib), TTE (cardio-embolic source), and CTA chest and UE (UE aneurysms or other embolic source) Will also consult plastic surgery/hand surgery - pt may benefit from topical NTG and/or systemic calcium channel blockers. Will follow. Yakov Shaw MD FACS [facility] associate partner [facility] - Heart and Vascular Surgery at [facility] [phone]
--- NOTE | 2017-12-16 10:29 | XR ---
EXAM DATE: 12/16/2017 10:25 AM EDT AGE/SEX: 77 years / Female INDICATIONS: Embolus. CLINICAL DATA: This is the patient's initial encounter. Patient reports that signs and symptoms have been present for 1 day and indicates a pain score of 0/10. MEDICAL/SURGICAL HISTORY: . Cirrhosis. Hypertension. Kyphoplasty. COMPARISON: [facility], CHEST SINGLE AP, 03/24/2015. . FINDINGS: A single AP view of the chest demonstrates minimal left basilar density. Heart enlarged. Retrocardiac density likely hiatal hernia. Kyphoplasty cement within thoracic vertebral bodies. Old left-sided ri b fractures. The cardiomediastinal contours are unremarkable. Osseous structures are intact. CONCLUSION: Left basilar scarring. Electronically signed by: Ge Nava MD 12/16/2017 10:27 AM EDT
[2017-12-16] MEDS: Dextrose 5%/NaCl 0.9% Inj 1,000 ML IV.CONT SCH (15:33)
--- NOTE | 2017-12-16 18:38 | MB ---
cc: Nichol Gorman MD DATE: 12/16/2017 REASON FOR CONSULTATION: Ischemic fingers. HISTORY OF PRESENT ILLNESS: The patient is a 77-year-old female with a past medical history of alcohol abuse. The patient was brought in by chapin active alcohol intoxication. The patient was noted to have an ulcer of the left hand, as well as some ischemia of the right hand. This has clinically improved overnight. It is also noted the patient was hypertensive initially. Consultation was requested regarding evaluation and treatment of the patient's hands. REVIEW OF SYSTEMS: Otherwise negative, except as in the HPI. PAST MEDICAL HISTORY: The patient denies high blood pressure, diabetes, heart disease, kidney disease, liver disease, disease of infectious etiology. She denies rheumatoid arthritis or any type of vascular disease or autoimmune disease. SURGICAL: She has a history of a right leg injury. SOCIAL HISTORY: The patient quit smoking approximately 5 years ago. PHYSICAL EXAMINATION: GENERAL: The patient is sitting comfortably in bed. HEENT: Extraocular muscles are intact. Pupils are equal, round and reactive to light. Mouth is clear. NECK: Supple, without mass. LUNGS: Clear. HEART: Regular rate and rhythm. EXTREMITIES: Examination of the upper extremities reveal some discoloration of the right third digit. There is also an ulceration of the left third digit, which apparently has healed or is in the process of healing. There is no evidence of infection, cellulitis or drainage. The tips of the fingers otherwise appear to be adequately perfused. Examination of her feet revealed delayed capillary refill and coolness. LABORATORY DATA: The patient's white count yesterday was 7.0 and there was no shift. Her H and H is 9.8/28.0. Her glucose on admission was 45. This morning it was 105. IMPRESSION: A complement C3 was 54 and a C4 was 18. Coagulation results are pending. Review of the x-rays reveals no evidence of bony involvement. The patient appears to have ischemia, which may be secondary to decreased circulation, especially with hypertension or there could be some sort of autoimmune phenomenon. PLAN: I suggest a rheumatologic workup. Please reconsult if any additional services may be needed. Local wound care to the fingers can be done with povidone iodine ointment to the eschar. She can change these daily. MD ISRAEL Reyna/miguel , 05:01 PM , 05:11 PM
[2017-12-16] MEDS: QUEtiapine 25 MG Tablet PO SCH (21:18)
[2017-12-17] MEDS: Dextrose 5%/NaCl 0.9% Inj 1,000 ML IV.CONT SCH ×2 (06:45→19:45)
[2017-12-17] MEDS: Aspirin 325 MG Tablet PO SCH (09:55)
[2017-12-17] MEDS: Folic Acid 1 MG Tablet PO SCH (09:56)
[2017-12-17] MEDS: Metoprolol Tartrate 25 MG Tablet PO SCH ×2 (09:57→21:31)
--- NOTE | 2017-12-17 09:59 | P.PNIM ---
Subjective Interval history: Pt without any new complaints She is still having a lot of burning pain in her hands bilaterally She denies any weakness in her hand or LE Denies any chest pain, SOB or palpitations. Physical Exam Vital signs: Vital Signs 12/16/17 12:00 12/16/17 16:00 12/16/17 20:00 Temperature 98.5 F 98.5 F 98.5 F Pulse Rate 83 83 78 Respiratory Rate 16 18 18 Blood Pressure 113/81 121/76 148/91 H Pulse Oximetry 95 95 94 L 12/17/17 00:00 12/17/17 04:00 12/17/17 08:00 Temperature 98.3 F 98.4 F 97.3 F L Pulse Rate 75 70 76 Respiratory Rate 18 17 18 Blood Pressure 138/85 138/83 137/90 Pulse Oximetry 92 L 94 L 96 Intake & Output 12/16/17 12/17/17 12/17/17 18:59 06:59 18:59 Intake Total 1000 / 1000 1120 / 1120 Balance 1000 / 1000 1120 / 1120 Weight 45 kg 51.6 kg Intake: IV 1000 / 1000 1000 / 1000 D5W/Normal Saline Inj 1,000 ML 1000 / 1000 1000 / 1000 @ 70 mls/hr IV.CONT .[id number] Rx#:[id number] Oral 120 / 120 Other: # Voids 3 Date of Last Bowel Movement 12/15/17 Narrative: GENERAL: This is a well-nourished, well-developed patient, in no apparent distress. SKIN: left hand: ulceration noted over middle fingertip with surrounding purplish discoloration. second/third/fourth fingertip/nail with purplish discoloration right hand:purple discoloration over right second/third/fourth fingertips ...mostly middle. tender to palpation. palpable radial pulses bilaterally. feet mild mottling. nontender. CARDIOVASCULAR: Regular rate and rhythm RESPIRATORY: Clear to auscultation. Breath sounds equal bilaterally. GASTROINTESTINAL: Abdomen soft, non-tender, nondistended. Normal active bowel sounds MUSCULOSKELETAL: mild pedal edema NEURO: Alert & Oriented. Moves all ext x4 Results - Labs CBC & Chem 7: 12/15/17 15:19 12/16/17 04:47 Laboratory Results - last 24 hr 08/07/18 08/07/18 08/07/18 13:30 18:56 21:06 POC Glucose 127 H 126 H 143 H 12/17/17 12/17/17 03:50 08:54 POC Glucose 163 H 123 H - Imaging Impressions Chest X-Ray 12/16/17 00:00 CONCLUSION: Left basilar scarring. Hand X-Ray 12/15/17 15:50 CONCLUSION: No acute findings. Mild to moderate degenerative disc disease. Assessment and Plan - Assessment (1) Ischemic finger ulcer Code(s): L98.499 - Non-pressure chronic ulcer of skin of other sites with unspecified severity Status: Acute Plan: Left 3rd finger ulceration and findings of bilateral 2nd/3rd/4rth fingertip ischemic changes and discoloration with associated pain/sensitivity. - Etiology unclear. Initially seen on December 08 urgent care and gave hx of ongoing symptoms x 4 weeks. - Pt doesn't seem right age group for thromboangiitis obliterans and pt does not smoke - Could consider collagen vascular dz/crest/Raynaud type phenomenon vs. Peripheral vascular disease is considered but would seem odd to present bilaterally and symmetrically. - Labs are pending to r/o hypercoagulable conditions also. - Appreciate consult from vascular surgery. 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 They are recommending TTE (to r/o cardio-embolic source) and CTA chest and UE (to evaluate for UE aneurysms or other embolic source) - Plastic surgery/hand surgery was consulted and they recommended rheumatological workup. - Lab w/up thus far with ESR 20, BARBY pending, complement C3 is 54, complement C4 is 18, scl 70, rheumatoid factor negative, hypercoag labs pending - Pain control PRN EtOH intoxication/abuse. - WA protocol - IVF. - PT eval pending - DVT prophylaxis The exam, history, and the medical decision-making described in the above note were completed with the assistance of the mid-level provider. I reviewed and agree with the findings presented. I attest that I had a [id number]-yfke encounter with the patient on the same day, and personally performed and documented my assessment and findings in the medical record. cta chest/arms...discuss with Dr Shaw. ?will ask if any vasodilators would help. await blood workup for cvd/ai w/up. echo pending. add neurontin and titrate as needed. will need Rheumatology referral. missed appt Friday. (2) ETOH abuse Code(s): F10.10 - Alcohol abuse, uncomplicated Status: Acute
--- NOTE | 2017-12-17 13:23 | CT ---
EXAM DATE: 12/17/2017 12:47 PM EDT AGE/SEX: 77 years / Female INDICATIONS: Peripheral vascular disease CLINICAL DATA: This is the patient's initial encounter. Patient reports that signs and symptoms have been present for 1 day and indicates a pain score of 0/10. MEDICAL/SURGICAL HISTORY: Hypertension. Ulcers. None. RADIATION DOSE: 14.13 CTDI (mGy) ; Combined studies COMPARISON: [facility], CT ABDOMEN & PELVIS W/O CONTRAST, 03/24/2015.. . TECHNIQUE: Volumetric scanning was performed using a multi-row detector CT scanner during bolus infu riccardo of 98 ml Omnipaque 350 (iohexol) nonionic water-soluble contrast as a cumulative dose for multi ple exams. The data was post processed with a variety of visualization algorithms including full vol ume maximum intensity projection, multi-planar sliding thin slab reformation, curved planar reformati on, and surface rendering techniques. Using automated exposure control and adjustment of the mA and/ or kV according to patient size, radiation dose was kept as low as reasonably achievable to obtain op timal diagnostic quality images. DICOM format image data is available electronically for review and comparison. FINDINGS: THORACIC/ABDOMINAL AORTA/inflow: The thoracic aorta, abdominal aorta, and inflow vessels show mild sc attered calcified plaque. No stenosis, aneurysm, or dissection. Conventional anatomy is seen at the a [facility] level. There is variant anatomy involving the celiac. The gastroduodenal artery and right hepatic artery arise from the proximal SMA. The celiac and SMA are patent. BOLA is patent. The renal arteries are patent bilaterally. There is a small accessory renal artery noted on the right. HEART AND MEDIASTINUM: The heart is normal in size. No pericardial effusion. Pulmonary arteries are n ormal in caliber. Coronary artery atherosclerotic calcifications are noted. No adenopathy. LUNG PARENCHYMA: Tiny bilateral pleural effusions with mild passive atelectasis. A small amount of fl uid is seen within the major fissure on the left. No infiltrate or mass. OTHER STRUCTURES: Diffuse low attenuation change involving the liver. Small calcified gallstones with in an otherwise unremarkable gallbladder. Prior ventral hernia repair utilizing mesh. No recurrent he rnia appreciated. Trace amount of ascitic fluid. Scattered diverticulosis of the colon without acute inflammation observed. Femoral neck screw and intramedullary gilma noted on the left. CONCLUSION: 1. Aorta and inflow are patent. 2. Hepatic steatosis. 3. Tiny bilateral pleural effusions and associated passive atelectasis. 4. Cholelithiasis. Electronically signed by: Bienvenido Bonilla MD 12/17/2017 1:22 PM EDT
--- NOTE | 2017-12-17 13:32 | CT ---
EXAM DATE: 12/17/2017 12:48 PM EDT AGE/SEX: 77 years / Female INDICATIONS: Peripheral vascular disease CLINICAL DATA: This is the patient's initial encounter. Patient reports that signs and symptoms have been present for 1 day and indicates a pain score of 0/10. MEDICAL/SURGICAL HISTORY: Hypertension. Ulcers. None. RADIATION DOSE: 14.18 CTDI (mGy) ; Combined studies COMPARISON: No prior exams available for comparison. TECHNIQUE: Volumetric scanning was performed using a multi-row detector CT scanner during bolus infu riccardo of 98 ml Omnipaque 350 (iohexol) nonionic water-soluble contrast as a cumulative dose for multi ple exams. The data was post processed with a variety of visualization algorithms including full vol ume maximum intensity projection, multi-planar sliding thin slab reformation, curved planar reformati on, and surface rendering techniques. Using automated exposure control and adjustment of the mA and/ or kV according to patient size, radiation dose was kept as low as reasonably achievable to obtain op timal diagnostic quality images. DICOM format image data is available electronically for review and comparison. FINDINGS: Patient's IV appears to be in the right antecubital fossa. As such, there is tremendous venous contam ination in the right upper extremity. The brachiocephalic and subclavian veins are quite tortuous but patent. Axillary and proximal brachial arteries are also patent. Mid brachial artery again is obscur ed partially by the dense contrast in the adjacent brachial basilic system but I believe the brachial artery remains patent down to the trifurcation. Interosseous branch to be seen to the distal radius and the radial artery appears to be the dominant runoff with the ulna possibly occluding just above t he level of the wrist. CONCLUSION: 1. Exam is limited due to extreme venous contamination. IV access is in the right antecubital fossa. 2. Centrally, the arterial system is patent with marked tortuosity of the brachiocephalic and subcla vian veins. 3. Axillary artery is widely patent. Although partially obscured, believe the brachial artery appear s to be patent down to the trifurcation. 4. The ulnar artery may occlude just above the wrist. Interosseous is seen to the level of the dista l radius and the radial artery appears to be the dominant runoff. Electronically signed by: Lemuel Giordano MD 12/17/2017 1:30 PM EDT
--- NOTE | 2017-12-17 13:35 | CT ---
EXAM DATE: 12/17/2017 12:47 PM EDT AGE/SEX: 77 years / Female INDICATIONS: Peripheral vascular disease CLINICAL DATA: This is the patient's initial encounter. Patient reports that signs and symptoms have been present for 1 day and indicates a pain score of 0/10. MEDICAL/SURGICAL HISTORY: Hypertension. Ulcers. None. RADIATION DOSE: 14.28 CTDI (mGy) ; Combined studies COMPARISON: No prior exams available for comparison. TECHNIQUE: Volumetric scanning was performed using a multi-row detector CT scanner during bolus infu riccardo of 98 ml Omnipaque 350 (iohexol) nonionic water-soluble contrast as a cumulative dose for multi ple exams. The data was post processed with a variety of visualization algorithms including full vol ume maximum intensity projection, multi-planar sliding thin slab reformation, curved planar reformati on, and surface rendering techniques. Using automated exposure control and adjustment of the mA and/ or kV according to patient size, radiation dose was kept as low as reasonably achievable to obtain op timal diagnostic quality images. DICOM format image data is available electronically for review and comparison. FINDINGS: Please see the CTA of the chest reported separately. The arterial structures of left upper extremity are normal. No stenosis or occlusion. No aneurysm. Th e radial, ulnar, and interosseous arteries are seen to the level of the distal forearm. Distal to the carpus there is poor visualization of the arterial structures due to technical factors. Soft tissues are unremarkable. Old left-sided rib fractures. CONCLUSION: 1. Unremarkable CTA of the left upper extremity. There is poor visualization of the arterial structu res distal to the carpus which is technically related. 2. Old left-sided rib fractures. Electronically signed by: Bienvenido Bonilla MD 12/17/2017 1:34 PM EDT
[2017-12-17] MEDS: Gabapentin 100 MG Capsule PO SCH ×2 (15:15→19:44)
[2017-12-17 16:50] LABS: Anti-Nuclear Antibody Screen Pos (Neg)
[2017-12-17] MEDS: QUEtiapine 25 MG Tablet PO SCH (21:28)
[2017-12-18] MEDS: Dextrose 5%/NaCl 0.9% Inj 1,000 ML IV.CONT SCH (07:36)
[2017-12-18] MEDS: Aspirin 325 MG Tablet PO SCH (08:32)
[2017-12-18] MEDS: Gabapentin 100 MG Capsule PO SCH (08:32)
[2017-12-18] MEDS: Folic Acid 1 MG Tablet PO SCH (08:33)
[2017-12-18] MEDS: Metoprolol Tartrate 25 MG Tablet PO SCH ×2 (08:33→20:53)
--- NOTE | 2017-12-18 09:03 | P.PNVS ---
Subjective Subjective/Hospital Course: Pt resting comfortably in bed w/o complaints Wounds stable and do not appear to be worsening Pt continues with discolored digits (R-3/4-1234) UE warm w/ motor intact Pt w/o UE swelling Palpable distal pulses present CTA/Chest X ray reviewed Objective Vital Signs / I&O: Vital Signs 12/17/17 12:00 12/17/17 16:00 12/17/17 18:30 Temperature 97.4 F L 97.5 F L 97.8 F Pulse Rate 71 63 71 Respiratory Rate 16 18 16 Blood Pressure 147/85 H 160/88 H 171/99 H Pulse Oximetry 95 95 93 L 12/17/17 20:00 12/18/17 00:00 12/18/17 04:00 Temperature 97.6 F 97 F L 97 F L Pulse Rate 87 97 H 97 H Respiratory Rate 20 20 18 Blood Pressure 122/79 146/86 H 134/77 Pulse Oximetry 92 L 97 95 Intake & Output 12/17/17 12/18/17 12/18/17 18:59 06:59 18:59 Intake Total 720 / 720 Output Total 1000 / 1000 Balance -280 / -280 Weight 51.4 kg Intake: Oral 720 / 720 Output: Urine 1000 / 1000 Other: # Voids 2 Date of Last Bowel Movement 12/17/17 12/17/17 # Bowel Movements 2 Physical Exam: Hand warm w/ motor intact Palpable R/L radial pulses noted (2+) Purplish discolored R-3/L 1234 digits Dry dark ulceration noted L distal end of 3rd digit Dry ulceration to R medial and lateral aspect of 3rd digit fingertip Pt w/o UE swelling Laboratory Results - last 24 hr 12/16/17 12/16/17 12/17/17 04:47 04:47 08:54 POC Glucose 123 H Vitamin B12 BARBY Screen Pos H Anti-Cardiolipin IgG Ab <9.4 Anti-Cardiolipin IgM Ab 10.8 12/17/17 12/17/17 12/17/17 12:39 13:03 16:18 POC Glucose 52 L 154 H Vitamin B12 419 BARBY Screen Anti-Cardiolipin IgG Ab Anti-Cardiolipin IgM Ab 12/17/17 12/18/17 17:33 07:04 POC Glucose 155 H 93 Vitamin B12 BARBY Screen Anti-Cardiolipin IgG Ab Anti-Cardiolipin IgM Ab Impressions Chest X-Ray 12/16/17 00:00 CONCLUSION: Left basilar scarring. Thoracic Aorta CT 12/17/17 00:00 CONCLUSION: 1. Aorta and inflow are patent. 2. Hepatic steatosis. 3. Tiny bilateral pleural effusions and associated passive atelectasis. 4. Cholelithiasis. Upper Extremity CTA 12/17/17 00:00 CONCLUSION: 1. Exam is limited due to extreme venous contamination. IV access is in the right antecubital fossa. 2. Centrally, the arterial system is patent with marked tortuosity of the brachiocephalic and subclavian veins. 3. Axillary artery is widely patent. Although partially obscured, believe the brachial artery appears to be patent down to the trifurcation. 4. The ulnar artery may occlude just above the wrist. Interosseous is seen to the level of the distal radius and the radial artery appears to be the dominant runoff. Upper Extremity CTA 12/17/17 00:00 CONCLUSION: 1. Unremarkable CTA of the left upper extremity. There is poor visualization of the arterial structures distal to the carpus which is technically related. 2. Old left-sided rib fractures. Assessment and Plan - Plan 77/F with bilateral hand pain, paresthesias and ulcerations to her 3rd digits for a duration of 3W UE warm with motor intact Palpable distal pulses Pt w/o UE swelling CTA/Chest X Ray reviewed- Unremarkable Plan Recommend continued Rheumatological w/u- Vasculitis Recommend nitro paste ointment to be applied to B hands Discussed CTA/X Ray results w/ pt Arranged out pt f/u with surveillance studies Pt aware of plan Stephanie Walls NP [facility] [phone] Discharge Planning: Pt clear for discharge from a vascular standpoint Arranged out pt f/U
[2017-12-18 09:41] LABS: Baso % (Auto) 0.1 % (0.0-2.0); Eos % (Auto) 0.1 % (0.0-4.0); Hemoglobin 10.3 gm/dL (11.6-15.3); Lymph # (Auto) 0.9 th/mm3 (1.0-4.8); Lymph % (Auto) 14.5 % (9.0-44.0); Mean Corpuscular HGB Conc 34.4 % (32.0-36.0); Mean Corpuscular Hemoglobin 36.4 pg (27.0-34.0); Mean Corpuscular Volume 105.7 fL (80.0-100.0); Mean Platelet Volume 9.1 fL (7.0-11.0); Mono # (Auto) 0.5 th/mm3 (0.0-0.9); Mono % (Auto) 8.2 % (0.0-8.0); Neut % (Auto) 77.1 % (16.0-70.0); Platelet Count 187 th/mm3 (150-450); Red Blood Count 2.84 mil/mm3 (4.00-5.30); Red Cell Distribution Width 15.8 % (11.6-17.2); White Blood Count 6.5 th/mm3 (4.0-11.0)
[2017-12-18 09:59] LABS: Anion Gap 8 meq/L (5-15); Blood Urea Nitrogen 10 mg/dL (7-18); Calcium 8.1 mg/dL (8.5-10.1); Carbon Dioxide 25.2 meq/L (21.0-32.0); Chloride 105 meq/L (98-107); Glomerular Filtration Rate Greater Than 89 mL/min (>89); Glucose,Random 92 mg/dL (74-106); Sodium 138 meq/L (136-145)
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
[2017-12-18] MEDS: Gabapentin 300 MG Capsule PO SCH ×2 (12:45→17:03)
[2017-12-18 15:52] LABS: Dil Russell Viper Venom Conf ( ND (NEGATIVE); Dil Russell Viper Venom Time M ND (CORRECTED); Lupus Anticoagulant PTT Screen 37 seconds (< OR = 40)
[2017-12-18 18:55] LABS: Factor V Leiden Mutation Negative (Negative); Protein C Antigen 26 % (70-150)
[2017-12-18] MEDS: QUEtiapine 25 MG Tablet PO SCH (20:53)
[2017-12-19] MEDS: Gabapentin 300 MG Capsule PO SCH ×3 (09:04→17:43)
[2017-12-19] MEDS: Metoprolol Tartrate 25 MG Tablet PO SCH ×2 (09:04→22:03)
[2017-12-19] MEDS: Aspirin 325 MG Tablet PO SCH (09:04)
[2017-12-19] MEDS: Folic Acid 1 MG Tablet PO SCH (09:04)
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
[2017-12-19 14:44] LABS: Anti-Nuclear Antibody Pattern Speckled
[2017-12-19] MEDS: QUEtiapine 25 MG Tablet PO SCH (22:01)
[2017-12-20] MEDS: Gabapentin 300 MG Capsule PO SCH ×3 (10:03→18:53)
[2017-12-20] MEDS: Metoprolol Tartrate 25 MG Tablet PO SCH ×2 (10:03→21:17)
[2017-12-20] MEDS: Folic Acid 1 MG Tablet PO SCH (10:03)
[2017-12-20] MEDS: Aspirin 325 MG Tablet PO SCH (10:04)
[2017-12-20] MEDS ORDERED: MethylPREDNISolone Sod Succinate Inj 125 MG/2 ML Vial IV.PUSH ONE (11:50)
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
[2017-12-20] MEDS: Enoxaparin Inj 40 MG/0.4 ML Syringe SQ SCH (13:09)
[2017-12-20] MEDS ORDERED: Bisacodyl 10 MG Supp RECTAL PRN (14:03)
[2017-12-20] MEDS: MethylPREDNISolone Sod Succinate Inj 125 MG/2 ML Vial IV.PUSH SCH ×2 (18:52→23:47)
[2017-12-20] MEDS: Senna/Docusate Sodium 8.6/50 MG Tablet PO SCH (21:17)
[2017-12-20] MEDS: QUEtiapine 25 MG Tablet PO SCH (21:17)
[2017-12-21] MEDS: MethylPREDNISolone Sod Succinate Inj 125 MG/2 ML Vial IV.PUSH SCH ×3 (05:45→17:08)
[2017-12-21] MEDS: Folic Acid 1 MG Tablet PO SCH (09:02)
[2017-12-21] MEDS: Gabapentin 300 MG Capsule PO SCH ×3 (09:02→17:08)
[2017-12-21] MEDS: Aspirin 325 MG Tablet PO SCH (09:02)
[2017-12-21] MEDS: Senna/Docusate Sodium 8.6/50 MG Tablet PO SCH ×2 (09:02→21:23)
[2017-12-21] MEDS: Metoprolol Tartrate 25 MG Tablet PO SCH ×2 (09:02→21:23)
[2017-12-21] MEDS: Enoxaparin Inj 40 MG/0.4 ML Syringe SQ SCH (09:03)
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
[2017-12-21] MEDS: amLODIPine 5 MG Tablet PO SCH (11:07)
[2017-12-21] MEDS: QUEtiapine 25 MG Tablet PO SCH (21:23)
[2017-12-22] MEDS: MethylPREDNISolone Sod Succinate Inj 125 MG/2 ML Vial IV.PUSH SCH ×2 (00:54→05:48)
[2017-12-22 05:46] VITALS: RESP 18
[2017-12-22 08:57] VITALS: TEMP 97.9
[2017-12-22 09:01] VITALS: BP 143/95; PULSE 74; O2SAT 95
[2017-12-22] MEDS: Enoxaparin Inj 40 MG/0.4 ML Syringe SQ SCH (09:43)
[2017-12-22] MEDS: amLODIPine 5 MG Tablet PO SCH (09:43)
[2017-12-22] MEDS: Aspirin 325 MG Tablet PO SCH (09:43)
[2017-12-22] MEDS: Gabapentin 300 MG Capsule PO SCH (09:43)
[2017-12-22] MEDS: Folic Acid 1 MG Tablet PO SCH (09:43)
[2017-12-22] MEDS: Metoprolol Tartrate 25 MG Tablet PO SCH (09:43)
[2017-12-22] MEDS: Senna/Docusate Sodium 8.6/50 MG Tablet PO SCH (09:44)
--- NOTE | 2017-12-22 11:21 | P.PNIM ---
Subjective Interval history: pt says fingertips feel better. ready to go home. Physical Exam Vital signs: Vital Signs 12/21/17 20:00 12/22/17 00:00 12/22/17 04:00 Temperature 97.8 F 97.9 F 97.4 F L Pulse Rate 90 77 76 Respiratory Rate 18 16 18 Blood Pressure 139/75 145/91 H 137/89 Pulse Oximetry 95 97 96 12/22/17 08:00 Temperature 97.9 F Pulse Rate 74 Respiratory Rate 18 Blood Pressure 143/95 H Pulse Oximetry 95 Intake & Output 12/21/17 12/22/17 12/22/17 18:59 06:59 18:59 Weight 53.1 kg heart reg lung cta abd s/nt ext middle left finger. stable scabbed ulceration minimal purple surrounding much improved left middle fingertip mild skin sloughing puntate areas of purple discoloration under nail at fingertip improved. 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 - Etiology unclear. Initially seen on December 08 urgent care and gave hx of ongoing symptoms x 4 weeks. - Pt doesn't seem right age group for thromboangiitis obliterans and pt does not smoke - Could consider collagen vascular dz/crest/Raynaud type phenomenon vs. Peripheral vascular disease is considered but would seem odd to present bilaterally and symmetrically. - Labs are pending to r/o hypercoagulable conditions also. - Appreciate consult from vascular surgery. 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 They are recommending TTE (to r/o cardio-embolic source) and CTA chest and UE (to evaluate for UE aneurysms or other embolic source). discussed with dr Feezor the cta chest and upper extremities...no lesions identified to account for her sx's and no intervention necessary - Plastic surgery/hand surgery was consulted and they both recommended rheumatological workup. - Lab w/up thus far with ESR 20, YASIR screen positive, complement C3 is 54, complement C4 is 18, scl 70, rheumatoid factor negative, hypercoag labs pending - Pain control PRN. titrate neurontin neurontin. topical nitroglycerin locally on fingers. added ccb norvasc as bp allows trial iv solumedrol given and will send home on a week of prednisone contacted rheumatology office who will see her after discharge. positive yasir panel pending. yasir was 1:320 pt fingertips behaving like raynauds with fluctuating perfusion. I think the post ntg pain is likely reperfusion pain that goes away. Overall today fingertips look well perfused. instructed to keep warm. meds prescribed. f/u pcp and rheumatology for pending studies result. - CIWA protocol stopped. - dc IVF. - PT eval - DVT prophylaxis (2) ETOH abuse Code(s): F10.10 - Alcohol abuse, uncomplicated Status: Acute
--- NOTE | 2017-12-22 11:41 | P.DCO ---
- Home Health Nursing Order: Medical education, Signs/symptoms of disease process, Medication education-adverse effect, Nursing assessment with vital signs Instructions: please assure pt taking new medications correctly including application of nitroglycerin to fingertips for perfusion. - Certification I have seen patient Latasha Keller on 12/22/17. My clinical findings support the need for the requested home health care services because: Need for psychosocial assistance I certify that my clinical findings support that this patient is homebound because: Need for psychosocial assistance
[2017-12-24 10:08] LABS: DS DNA Ab (Crithidia) <1.0
--- NOTE | 2017-12-26 08:22 | P.DS ---
Date of admission: 12/15/17 19:46 Primary care physician: Daniel Wood MD, PhD Anticipated date of discharge: 12/22/17 Brief History from admission: Pt is 77 yo female presented to ED with etoh intoxication complaining of finger pain and discoloration. Pt was previously seen in urgent care and referred to vascular surgery for evaluation of ischemic fingertip changes and the worse left middle fingertip. The digit has ulcerated and the right middle fingertip was showing early signs of tip skin sloughing and ulceration. DS: Diagnosis - Discharge Diagnosis (1) Ischemic finger ulcer Status: Acute (2) ETOH abuse Status: Acute DS: Medications - Discharge Medications Prescriptions: amlodipine [Norvasc] 2.5 mg PO DAILY 30 Days #15 tab gabapentin [Neurontin] 300 mg PO TID 14 Days #42 cap nitroglycerin [Nitro-Bid] 0.5 inch TOPICAL Q6HR 10 Days g prednisone 10 mg PO DIRECTED 7 Days #7 tab DS: Summary Hospital Course: (1) Ischemic finger ulcer Left 3rd finger ulceration and findings of bilateral 2nd/3rd/4rth fingertip ischemic changes and discoloration with associated pain/sensitivity. - Etiology unclear. Initially seen on December 08 urgent care and gave hx of ongoing symptoms x 4 weeks. - Pt doesn't seem right age group for thromboangiitis obliterans and pt does not smoke - Could consider collagen vascular dz/crest/Raynaud type phenomenon vs. Peripheral vascular disease is considered but would seem odd to present bilaterally and symmetrically. - Labs are pending to r/o hypercoagulable conditions also. - Appreciate consult from vascular surgery. 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 They are recommending TTE (to r/o cardio-embolic source) and CTA chest and UE (to evaluate for UE aneurysms or other embolic source). discussed with dr Shaw the cta chest and upper extremities...no lesions identified to account for her sx's and no intervention necessary - Plastic surgery/hand surgery was consulted and they both recommended rheumatological workup. - Lab w/up thus far with ESR 20, YASIR screen positive, complement C3 is 54, complement C4 is 18, scl 70, rheumatoid factor negative, hypercoag labs pending - Pain control PRN. titrate neurontin. topical nitroglycerin locally on fingers. added ccb norvasc as bp allows trial iv solumedrol given and will send home on a week of prednisone contacted rheumatology office who will see her after discharge. positive yasir panel pending. yasir was 1:320 pt fingertips behaving like raynauds with fluctuating perfusion. I think the post ntg pain is likely reperfusion pain that goes away. Overall today fingertips look well perfused. instructed to keep warm. meds prescribed. f/u pcp and rheumatology for pending studies result. - CIWA protocol prescribed but stopped during hospitalization. no w/d sx's noted. (2) ETOH abuse Code(s): F10.10 - Alcohol abuse, uncomplicated Status: Acute - Time Spent with Patient Total time spent providing and/or coordinating discharge services: Greater than 30 minutes - Quality: VTE Deep Vein Thrombosis/Pulmonary Embolism Present on Admission: No Exam Vital signs: nad heart reg lungcta abd s/nt ext left middle fingertip ulcer unchanged right middle fingertip minimal skin loss mild fingertip purple discoloration middle fingers but much improved from admission. surround fingertips well perfused Results Procedures completed during hospitalization: cta chest and upper extremities - Impressions ITS Impressions Hand X-Ray 12/15/17 15:50 CONCLUSION: No acute findings. Mild to moderate degenerative disc disease. Chest X-Ray 12/16/17 00:00 CONCLUSION: Left basilar scarring. Thoracic Aorta CT 12/17/17 00:00 CONCLUSION: 1. Aorta and inflow are patent. 2. Hepatic steatosis. 3. Tiny bilateral pleural effusions and associated passive atelectasis. 4. Cholelithiasis. Upper Extremity CTA 12/17/17 00:00 CONCLUSION: 1. Unremarkable CTA of the left upper extremity. There is poor visualization of the arterial structures distal to the carpus which is technically related. 2. Old left-sided rib fractures. Discharge Plan - Discharge Disposition Patient Disposition: Disch W/Home Health Service - Discharge Condition Condition: Stable - Discharge Order Discharge Orders: Discharge Order (Routine); Ordered 12/22/17 Ordered By: Boyd Frias Vascular Surgery Clear for Discharge (Routine); Ordered 12/18/17 Ordered By: Stephanie Walls - Discharge Details Anticipated Discharge Date: 12/22/17 Discharge Comment: dc pt home after next dose solumedrol and after lunch. - Physicians Team Primary Care Provider: Nina,Daniel J Attending Provider: Boyd Frias Other Providers: Yakov Shaw MD ; Nichol Gorman MD ; [facility]
== END 2017-12-22 14:33 | disposition home health service (06) ==
LOC: NEDA 14:37 → NEPD 14:37 → NEPGCP 20:05 → N04 12-17 18:29
PROVIDERS: ADMIT Hospitalist; ATTEND Hospitalist

== ENCOUNTER 2018-01-22 14:35 | Inpatient (IN) ==
[2018-01-22 16:18] LABS: Activated Partial Thrombo Time 29.4 sec (24.3-30.1); Prothrombin Time 10.5 sec (9.8-11.6)
[2018-01-22 16:21] LABS: Calcium 8.8 mg/dL (8.5-10.1); Carbon Dioxide 34.5 meq/L (21.0-32.0); Potassium 3.5 meq/L (3.5-5.1)
[2018-01-22] MEDS ORDERED: Sod Chloride 0.9% Inj 1,000 ML IV.SIG SCH (16:30)
[2018-01-22 16:37] LABS: Baso % (Auto) 0.3 % (0.0-2.0); Eos % (Auto) 0.2 % (0.0-4.0); Hematocrit 37.5 % (35.0-46.0); Hemoglobin 12.9 gm/dL (11.6-15.3); Lymph # (Auto) 0.3 th/mm3 (1.0-4.8); Lymph % (Auto) 3.2 % (9.0-44.0); Mean Corpuscular HGB Conc 34.4 % (32.0-36.0); Mean Corpuscular Hemoglobin 35.7 pg (27.0-34.0); Mono # (Auto) 0.4 th/mm3 (0.0-0.9); Mono % (Auto) 4.9 % (0.0-8.0); Neut # (Auto) 7.3 th/mm3 (1.8-7.7); Neut % (Auto) 91.4 % (16.0-70.0); Platelet Count 423 th/mm3 (150-450); Red Blood Count 3.61 mil/mm3 (4.00-5.30); Red Cell Distribution Width 15.3 % (11.6-17.2)
[2018-01-22 17:13] LABS: Bilirubin,Urine Negative (Negative); Clarity,Urine Clear (Clear); Color,Urine Yellow (Yellw/Straw); Glucose,Urine (UA) Negative (Negative); Leukocyte Esterase,Urine Trace (Negative); Nitrite,Urine Negative (Negative); Specific Gravity,Urine 1.014 (1.002-1.035); Squamous Epithelial Cell,Urine 1 /hpf (0-5)
--- NOTE | 2018-01-22 17:28 | ED ---
HPI General Chief complaint: Weakness Stated complaint: Weakness Time Seen by Provider: 01/22/18 15:13 Source: patient Mode of arrival: ambulatory Limitations: no limitations History of Present Illness HPI Narrative: 77-year-old female arrives to the ER with a complaint of weakness. 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 The patient' s friend called the primary doctor, Dr. Wood, and reported the patient had not urinated for a day and a half, eaten or drank anything. No loss of consciousness or fall. Patient denies alcohol abuse. Timing constant. Severity moderate. 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 Patient was started on steroids at one point which seemed to not make much of a difference. No fever. Patient has been unable to get out of bed Related Data Home Medications Medication Instructions Recorded Confirmed aspirin [Aspir-Low] 81 mg PO DAILY 12/22/17 01/22/18 biotin 1,000 mcg SUBLINGUAL BID 12/22/17 01/22/18 duloxetine 20 mg PO DAILY 12/22/17 01/22/18 folic acid 1 mg PO DAILY 12/22/17 01/22/18 magnesium oxide 400 mg PO DAILY 12/22/17 01/22/18 metoprolol tartrate 25 mg PO DAILY 12/22/17 01/22/18 quetiapine 12.5 mg PO HS 12/22/17 01/22/18 ergocalciferol (vitamin D2) 50,000 unit PO QWEEK 01/22/18 01/22/18 [Vitamin D2] furosemide [Lasix] 40 mg PO DAILY 01/22/18 01/22/18 methylprednisolone [Medrol] 8 mg PO DAILY 01/22/18 01/22/18 nifedipine 30 mg PO DAILY 01/22/18 01/22/18 nitroglycerin 1 patch TRANSDERMAL DAILY 01/22/18 01/22/18 Allergies Allergy/AdvReac Type Severity Reaction Status Date / Time Iodinated Contrast- Oral and Allergy Severe Unverified 09/18/17 13:46 IV Dye oxytocin Allergy Severe Unverified 09/18/17 13:46 Review of Systems ROS: all other systems reviewed are negative FORMERLY [facility], [facility] Medical History Medical History Heart failure (Acute) Medical history unknown (Acute) Surgical History Surgical History H/O section (Acute) H/O oral surgery (Acute) Social History Social History Substance History: Active Abuse Second Hand Smoke Exposure: No Smoking Status: Former smoker Tobacco Type: Cigarettes How Often Do You Have a Drink Containing Alcohol: Never Exam Narrative Exam Narrative: GENERAL: 77-year-old female pleasant well-nourished well- developed somewhat debilitated SKIN: Focused skin assessment warm/dry. HEAD: Atraumatic. Normocephalic. EYES: Pupils equal and round. No scleral icterus. No injection or drainage. ENT: No nasal bleeding or discharge. Mucous membranes pink and moist. NECK: Trachea midline. No JVD. CARDIOVASCULAR: Regular rate and rhythm. No murmur appreciated. RESPIRATORY: No accessory muscle use. Clear to auscultation. Breath sounds equal bilaterally. GASTROINTESTINAL: Abdomen soft, non-tender, nondistended. Hepatic and splenic margins not palpable. MUSCULOSKELETAL: Overlying the pad of the long finger on the left side is a 1 cm round eschar. 1/2 cm round eschar type lesion is present about the fingernail margins of the right long finger. Edema is present about the legs bilaterally. NEUROLOGICAL: Awake and alert. No obvious cranial nerve deficits. Motor grossly within normal limits. Normal speech. PSYCHIATRIC: Appropriate mood and affect; insight and judgment normal. Course Initial Documented Vital Signs Pulse Rate 92 H 01/22/18 14:38 Respiratory Rate 16 01/22/18 14:38 Blood Pressure 83/56 L 01/22/18 14:38 Pulse Oximetry 95 01/22/18 14:38 Last Documented Vital Signs Pulse Rate 92 H 01/22/18 14:38 Respiratory Rate 16 01/22/18 14:38 Blood Pressure 83/56 L 01/22/18 14:38 Pulse Oximetry 96 01/22/18 15:17 Medical Decision Making MDM Narrative Medical Screen Exam Complete: Yes Emergency Medical Condition: Yes Lab Data Lab results reviewed: Yes I reviewed the patient's lab results. Lab results narrative: Blood pressure sidney approximately 75. Liter normal saline added. The patient confirms that she is typically hypotensive at about [address] Wood. Discussed with Dr. Gray. EtOH level added on. Result diagrams: 01/22/18 15:10 01/22/18 15:10 Lab Results 01/22/18 01/22/18 01/22/18 Range/Units 15:10 15:10 15:10 WBC 8.0 (4.0-11.0) th/mm3 RBC 3.61 L (4.00-5.30) mil/mm3 Hgb 12.9 (11.6-15.3) gm/dL Hct 37.5 (35.0-46.0) % MCV 104.0 H (80.0-100.0) fL MCH 35.7 H (27.0-34.0) pg MCHC 34.4 (32.0-36.0) % RDW 15.3 (11.6-17.2) % Plt Count 423 (150-450) th/mm3 MPV 8.0 (7.0-11.0) fL Neut % (Auto) 91.4 H (16.0-70.0) % Lymph % (Auto) 3.2 L (9.0-44.0) % [place] % (Auto) 4.9 (0.0-8.0) % Eos % (Auto) 0.2 (0.0-4.0) % Baso % (Auto) 0.3 (0.0-2.0) % Neut # (Auto) 7.3 (1.8-7.7) th/mm3 Lymph # (Auto) 0.3 L (1.0-4.8) th/mm3 [place] # (Auto) 0.4 (0.0-0.9) th/mm3 Eos # (Auto) 0.0 (0.0-0.4) th/mm3 Baso # (Auto) 0.0 (0.0-0.2) th/mm3 WBC Differential . Differential Comment Auto diff final PT 10.5 (9.8-11.6) sec INR 1.0 Ratio APTT 29.4 (24.3-30.1) sec Sodium 128 L (136-145) meq/L Potassium 3.5 (3.5-5.1) meq/L Chloride 83 L (98-107) meq/L Carbon Dioxide 34.5 H (21.0-32.0) meq/L Anion Gap 11 (5-15) meq/L BUN 16 (7-18) mg/dL Creatinine 0.67 (0.50-1.00) mg/dL Estimated GFR 86 L (>89) mL/min Random Glucose 123 H (74-106) mg/dL Calcium 8.8 (8.5-10.1) mg/dL Urine Color (Yellw/Straw) Urine Clarity (Clear) Urine pH (5.0-8.5) Ur Specific [place] (1.002-1.035) Urine Protein (Neg-Trace) mg/dL Urine Glucose (UA) (Negative) mg/dL Urine Ketones (Negative) mg/dL Urine Occult Blood (Negative) Urine Nitrate (Negative) Urine Bilirubin (Negative) Urine Urobilinogen (Less than 2) mg/dL Ur Leukocyte Esterase (Negative) Urine RBC (0-3) /hpf Urine WBC (0-5) /hpf Ur Squamous Epith Cells (0-5) /hpf Micro UA Comment Ur Microscopic Review Urine Culture Comments 01/22/18 Range/Units 16:30 WBC (4.0-11.0) th/mm3 RBC (4.00-5.30) mil/mm3 Hgb (11.6-15.3) gm/dL Hct (35.0-46.0) % MCV (80.0-100.0) fL MCH (27.0-34.0) pg MCHC (32.0-36.0) % RDW (11.6-17.2) % Plt Count (150-450) th/mm3 MPV (7.0-11.0) fL Neut % (Auto) (16.0-70.0) % Lymph % (Auto) (9.0-44.0) % [place] % (Auto) (0.0-8.0) % Eos % (Auto) (0.0-4.0) % Baso % (Auto) (0.0-2.0) % Neut # (Auto) (1.8-7.7) th/mm3 Lymph # (Auto) (1.0-4.8) th/mm3 [place] # (Auto) (0.0-0.9) th/mm3 Eos # (Auto) (0.0-0.4) th/mm3 Baso # (Auto) (0.0-0.2) th/mm3 WBC Differential Differential Comment PT (9.8-11.6) sec INR Ratio APTT (24.3-30.1) sec Sodium (136-145) meq/L Potassium (3.5-5.1) meq/L Chloride (98-107) meq/L Carbon Dioxide (21.0-32.0) meq/L Anion Gap (5-15) meq/L BUN (7-18) mg/dL Creatinine (0.50-1.00) mg/dL Estimated GFR (>89) mL/min Random Glucose (74-106) mg/dL Calcium (8.5-10.1) mg/dL Urine Color Yellow (Yellw/Straw) Urine Clarity Clear (Clear) Urine pH 5.0 (5.0-8.5) Ur Specific [place] 1.014 (1.002-1.035) Urine Protein Negative (Neg-Trace) mg/dL Urine Glucose (UA) Negative (Negative) mg/dL Urine Ketones Negative (Negative) mg/dL Urine Occult Blood Negative (Negative) Urine Nitrate Negative (Negative) Urine Bilirubin Negative (Negative) Urine Urobilinogen 2.0 H (Less than 2) mg/dL Ur Leukocyte Esterase Trace H (Negative) Urine RBC 1 (0-3) /hpf Urine WBC 2 (0-5) /hpf Ur Squamous Epith Cells 1 (0-5) /hpf Micro UA Comment Cath-culture not ind Ur Microscopic Review Not Reportable Urine Culture Comments Cath-cult not ind Discharge Plan Discharge Disposition Patient Disposition: 30 Still Patient Physicians Team ED Provider: Raleigh Murdock Primary Care Provider: Daniel Wood Rxs /Orders / Referrals /Forms Prescriptions: No Action quetiapine 25 mg Tablet 12.5 mg PO HS RF: 0 aspirin [Aspir-Low] 81 mg Tablet,Delayed Release (Dr/Ec) 81 mg PO DAILY RF: 0 magnesium oxide 400 mg Tablet 400 mg PO DAILY RF: 0 folic acid 1 mg Tablet 1 mg PO DAILY RF: 0 metoprolol tartrate 25 mg Tablet 25 mg PO DAILY RF: 0 duloxetine 20 mg Capsule,Delayed Release(Dr/Ec) 20 mg PO DAILY RF: 0 biotin 5,000 mcg Tablet, Sublingual 1,000 mcg Sublingual BID RF: 0 furosemide [Lasix] 40 mg Tablet 40 mg PO DAILY RF: 0 nitroglycerin 0.2 mg/hr Patch 24 Hour 1 patch TRANSDERMAL DAILY RF: 0 methylprednisolone [Medrol] 4 mg Tablet 8 mg PO DAILY RF: 0 nifedipine 30 mg Tablet Extended Release 30 mg PO DAILY RF: 0 ergocalciferol (vitamin D2) [Vitamin D2] 50,000 unit Capsule 50,000 unit PO QWEEK RF: 0 Status ED Status: With Doctor
[2018-01-22] MEDS ORDERED: MethylPREDNISolone Sod Succinate Inj 125 MG/2 ML Vial IV.PUSH ONE (19:37)
[2018-01-22] MEDS ORDERED: Acetaminophen 325 MG Tablet PO PRN (20:04)
[2018-01-22] MEDS ORDERED: Bisacodyl 10 MG Supp RECTAL PRN (20:04)
--- NOTE | 2018-01-22 20:13 | P.HPCC ---
History of Present Illness Primary Care Physician: Daniel Wood MD, PhD History of Present Illness: 77-year-old female presents with a complaint of weakness. 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 The patient's friend called the primary doctor, Dr. Wood, and reported the patient had not urinated for a day and a half, eaten or drank anything. No loss of consciousness or fall. 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 Patient was started with steroids at one point which seemed to not make much of a difference. No fever. Patient has been unable to get out of bed due to nonfocal weakness. She denies fever chills or night sweats. Review of Systems All other systems reviewed negative except as stated in HPI PMFSH - History History Provided By: Patient - Medical History Medical History: Medical History (Last Updated 01/22/18 @ 14:47 by Jaret Sanabria RN) Heart failure Medical history unknown - Surgical History Surgical History: Surgical History (Last Updated 01/22/18 @ 14:47 by Jaret Sanabria RN) H/O section H/O oral surgery - Tobacco History Second Hand Smoke Exposure: No Smoking Status: Former smoker Tobacco Type: Cigarettes - Alcohol History How Often Do You Have a Drink Containing Alcohol: Never - Substance Use History Substance History: Active Abuse - Immunization History Tetanus Immunization: Unsure Hx Influenza Vaccine This Season: No Medications and Allergies Active Medications: Active Medications Acetaminophen (Tylenol) 650 mg PO Q6H PRN PRN Reason: PAIN 1-10 AND/OR FEVER >101F Al Hydroxide/Mg Hydroxide (Milk Of Lesly Avery) 30 ml PO Q12H PRN PRN Reason: Mild Constipation Albuterol (Duoneb Neb (Prn)) 1 ampul NEB Q2HR NEB PRN PRN Reason: WHEEZING Aspirin (Ecotrin) 81 mg PO DAILY [facility] Bisacodyl (Dulcolax Supp) 10 mg RECTAL DAILY PRN PRN Reason: SEVERE CONSITIPATION Chlorhexidine Gluconate (Chlorhexidine 2% Cloth) 3 pack TOPICAL DAILY@0400 [facility] Stop: 01/28/18 03:59 Chlorhexidine Gluconate (Chlorhexidine 2% Cloth) 3 pack TOPICAL DAILY@0400 PRN PRN Reason: Extra cloth needed Stop: 01/28/18 03:59 Enoxaparin Sodium (Lovenox Inj) 40 mg SQ Q24H [facility] Ergocalciferol (Vitamin D2) 50,000 unit PO QWEEK [facility] Folic Acid (Folic Acid) 1 mg PO DAILY [facility] Sodium Chloride (Ns Inj) 1,000 mls @ 0 mls/hr IV.SIG BOLUS [facility] Last Infusion: 01/22/18 17:38 Dose: Infused Sodium Chloride (Ns Inj) 1,000 mls @ 124 mls/hr IV.CONT .Q8H4M [facility] Lactulose (Lactulose Liq) 30 ml PO DAILY PRN PRN Reason: SEVERE CONSITIPATION Methylprednisolone (Medrol) 8 mg PO DAILY [facility] Metoclopramide HCl (Reglan Inj) 5 mg IV.PUSH Q6HR [facility]; Protocol Ondansetron HCl (Zofran Inj) 4 mg IV.PUSH Q6H PRN PRN Reason: NAUSEA OR VOMITING Senna/Docusate Sodium (Sofía-Colace) 1 tab PO BID [facility] Sennosides (Senokot) 17.2 mg PO Q12H PRN PRN Reason: Moderate Constipation Sodium Chloride (Ns Flush) 2 ml IV.FLUSH PRN PRN PRN Reason: FLUSH AFTER USING IV ACCESS Sodium Chloride (Ns Flush) 2 ml IV.FLUSH BID [facility] Sodium Chloride (Ns Flush) 2 ml IV.FLUSH PRN PRN PRN Reason: FLUSH AFTER USING IV ACCESS Allergies Allergy/AdvReac Type Severity Reaction Status Date / Time Iodinated Contrast- Oral and Allergy Severe Anaphylaxis Unverified 01/22/18 17: 29 IV Dye oxytocin Allergy Severe Anaphylaxis Unverified 01/22/18 17:29 Home Medications Medication Instructions Recorded Confirmed Type aspirin [Aspir-Low] 81 mg PO DAILY 12/22/17 01/22/18 History biotin 1,000 mcg SUBLINGUAL BID 12/22/17 01/22/18 History duloxetine 20 mg PO DAILY 12/22/17 01/22/18 History folic acid 1 mg PO DAILY 12/22/17 01/22/18 History magnesium oxide 400 mg PO DAILY 12/22/17 01/22/18 History metoprolol tartrate 25 mg PO DAILY 12/22/17 01/22/18 History quetiapine 12.5 mg PO HS 12/22/17 01/22/18 History ergocalciferol (vitamin D2) 50,000 unit PO QWEEK 01/22/18 01/22/18 History [Vitamin D2] furosemide [Lasix] 40 mg PO DAILY 01/22/18 01/22/18 History methylprednisolone [Medrol] 8 mg PO DAILY 01/22/18 01/22/18 History nifedipine 30 mg PO DAILY 01/22/18 01/22/18 History nitroglycerin 1 patch TRANSDERMAL DAILY 01/22/18 01/22/18 History Results - Labs CBC & Chem 7: 01/22/18 15:10 01/22/18 15:10 Labs: Short CBC 01/22/18 Range/Units 15:10 WBC 8.0 (4.0-11.0) th/mm3 Hgb 12.9 (11.6-15.3) gm/dL Hct 37.5 (35.0-46.0) % Plt Count 423 (150-450) th/mm3 BMP 01/22/18 15:10 Sodium 128 L Potassium 3.5 Chloride 83 L Carbon Dioxide 34.5 H BUN 16 Creatinine 0.67 Calcium 8.8 Urine 01/22/18 Range/Units 16:30 Urine Color Yellow (Yellw/Straw) Urine Clarity Clear (Clear) Urine pH 5.0 (5.0-8.5) Ur Specific [place] 1.014 (1.002-1.035) Urine Protein Negative (Neg-Trace) mg/dL Urine Glucose (UA) Negative (Negative) mg/dL Exam Vital signs: Vital Signs 01/22/18 14:38 01/22/18 15:15 01/22/18 15:17 Pulse Rate 92 H 92 H Respiratory Rate 16 16 Blood Pressure 83/56 L 87/60 L Pulse Oximetry 95 94 L 96 01/22/18 16:00 01/22/18 16:30 01/22/18 19:26 Pulse Rate 86 86 116 H Respiratory Rate 16 16 22 Blood Pressure 81/53 L 73/55 L 101/65 Pulse Oximetry 90 L 94 L 96 Intake & Output 01/22/18 01/22/18 01/23/18 06:59 18:59 06:59 Intake Total 1000 / 1000 Balance 1000 / 1000 Weight 45.359 kg Intake: IV 1000 / 1000 NS Inj 1,000 ML @ Wide Open IV. 1000 / 1000 SIG BOLUS [facility] Rx#:[id number] - Constitutional no acute distress - Routine HEENT Exam Head: Present: normocephalic Eye: Present: PERRL ENT: Present: mucous membranes moist - Routine Neck Exam Present: supple, full ROM. Absent: JVD, carotid bruit - Routine Respiratory Exam Absent: accessory muscle use, respiratory distress, rhonchi, stridor, wheezes - Routine Cardiovascular Exam Present: RRR, S1, S2. Absent: gallop, rubs - Routine Abdominal Exam Present: soft, normoactive bowel sounds. Absent: tenderness, distended, rebound - Routine Extremities Exam Absent: cyanosis, clubbing, edema - Routine Skin Exam Present: dry. Absent: cyanosis, erythema Comments: Bilateral finger discoloration with ulcerations of right middle finger ,left 3rd 2,3 4 finger involvement - Routine Neurological Exam Present: alert, oriented X3, moving all extremities Caprini VTE Risk Assessment Caprini VTE Risk Assessment: Moderate/High Risk (score >= 2) Caprini Risk Assessment Model: Point Value = 1 Point Value = 2 Point Value = 3 Point Value = 5 Age 41-60 Minor surgery BMI > 25 kg/m2 Swollen legs Varicose veins or History of unexplained or recurrent spontaneous Oral contraceptives or hormone replacement Sepsis (< 1 month) Serious lung disease, including pneumonia (< 1 month) Abnormal pulmonary function Acute myocardial infarction Congestive heart failure (< 1 month) History of inflammatory bowel disease Medical patient at bed rest Age 61-74 Arthroscopic surgery Major open surgery (> 45 min) Laparoscopic surgery (> 45 min) Malignancy Confined to bed (> 72 hours) Immobilizing plaster cast Central venous access Age >= 75 History of VTE Family history of VTE Factor V Leiden Prothrombin [id number] Lupus anticoagulant Anticardiolipin antibodies Elevated serum homocysteine Heparin-induced thrombocytopenia Other congenital or acquired thrombophilia Stroke (< 1 month) Elective arthroplasty Hip, pelvis, or leg fracture Acute spinal cord injury (< 1 month) Prophylaxis Regimen: Total Risk Factor Score Risk Level Prophylaxis Regimen 0-1 Low Early ambulation 2 Moderate Order ONE of the following: *Sequential Compression Device (SCD) *Heparin 5000 units SQ BID 3-4 Higher Order ONE of the following medications: *Heparin 5000 units SQ TID *Enoxaparin/Lovenox 40 mg SQ daily (WT < 150 kg, CrCl > 30 mL/min) *Enoxaparin/Lovenox 30 mg SQ daily (WT < 150 kg, CrCl > 10-29 mL/min) *Enoxaparin/Lovenox 30 mg SQ BID (WT < 150 kg, CrCl > 30 mL/min) AND/OR *Sequential Compression Device (SCD) 5 or more Highest Order ONE of the following medications: *Heparin 5000 units SQ TID (Preferred with Epidurals) *Enoxaparin/Lovenox 40 mg SQ daily (WT < 150 kg, CrCl > 30 mL/min) *Enoxaparin/Lovenox 30 mg SQ daily (WT < 150 kg, CrCl > 10-29 mL/min) *Enoxaparin/Lovenox 30 mg SQ BID (WT < 150 kg, CrCl > 30 mL/min) AND *Sequential Compression Device (SCD) Assessment and Plan - Assessment and Plan Plan: Hypotension -Possibly due to combination of antihypertensive meds and nitroglycerin -We will hold home meds -IV fluid resuscitation -Vasopressors as needed to keep MAP above 65 -Rule out infection with blood cultures Vasculitis -Small vessel vasculitis -Continue home dose of prednisone -Hepatitis panel -Lipid profile in a.m. Acute kidney injury -With decreased GFR -Aggressive IV fluid resuscitation -Monitor trend of creatinine and electrolyte Hyponatremia -Due to above -IV fluid resuscitation -Monitor trend Anemia -Megaloblastic -B12 and folate level -Monitor DVT GI prophylaxis -Teds SCDs -Subcu Lovenox -Regular diet 35 minutes of critical care
[2018-01-22] MEDS: Sod Chloride 0.9% Inj 1,000 ML IV.CONT SCH (20:47)
[2018-01-22] MEDS ORDERED: Phenylephrine Inj 40 MG in Dextrose 5% in Water Inj 496 ML IV.CONT PRN ×2 (22:00)
--- NOTE | 2018-01-22 22:05 | P.PN ---
Subjective Interval history: Called by ER about patient,77-year-old female arrives to the ER with a complaint of weakness. 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 The patient's friend called the primary doctor, Dr. Wood, and reported the patient had not urinated for a day and a half, eaten or drank anything. No loss of consciousness or fall. Patient denies alcohol abuse at the current time. Moderate drinker recently. 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 Patient was started on steroids at one point which seemed to not make much of a difference. No fever. Patient has been unable to get out of bed and normally has high blood pressure and is on multiple BP meds but despite IV fluid has been hypotensive and patient admitted to public address system installer service. Physical Exam Vital signs: Vital Signs 01/22/18 14:38 01/22/18 15:15 01/22/18 15:17 Pulse Rate 92 H 92 H Respiratory Rate 16 16 Blood Pressure 83/56 L 87/60 L Pulse Oximetry 95 94 L 96 01/22/18 16:00 01/22/18 16:30 01/22/18 19:26 Pulse Rate 86 86 116 H Respiratory Rate 16 16 22 Blood Pressure 81/53 L 73/55 L 101/65 Pulse Oximetry 90 L 94 L 96 01/22/18 20:44 Pulse Rate 111 H Respiratory Rate 19 Blood Pressure 90/63 L Pulse Oximetry Intake & Output 01/22/18 01/22/18 01/23/18 06:59 18:59 06:59 Intake Total 1000 / 1000 Balance 1000 / 1000 Weight 45.359 kg 46 kg Intake: IV 1000 / 1000 NS Inj 1,000 ML @ Wide Open IV. 1000 / 1000 SIG BOLUS [facility] Rx#:[id number] Other: Weight On Admission 46 kg Narrative: GENERAL: SKIN: Warm and dry. bilateral finger pain with discoloration with ulcerations rt middle finger ,left 3rd 2,3 4 finger involvement HEAD: Normocephalic. EYES: No scleral icterus. No injection or drainage. NECK: Supple, trachea midline. No JVD or lymphadenopathy. CARDIOVASCULAR: Regular rate and rhythm without murmurs, gallops, or rubs. RESPIRATORY: Breath sounds equal bilaterally. No accessory muscle use. GASTROINTESTINAL: Abdomen soft, non-tender, nondistended. MUSCULOSKELETAL: No cyanosis, or edema. BACK: Nontender without obvious deformity. No CVA tenderness. - Urinary Catheter Management Straight Cath placed during this visit: yes Reason for continuing: Not indwelling catheter Insertion date: 01/22/18 Insertion time: 16:35 Results - Labs CBC & Chem 7: 01/22/18 15:10 01/22/18 15:10 Laboratory Results - last 24 hr 01/22/18 01/22/18 01/22/18 15:10 15:10 15:10 WBC 8.0 RBC 3.61 L Hgb 12.9 Hct 37.5 MCV 104.0 H MCH 35.7 H MCHC 34.4 RDW 15.3 Plt Count 423 MPV 8.0 Neut % (Auto) 91.4 H Lymph % (Auto) 3.2 L [place] % (Auto) 4.9 Eos % (Auto) 0.2 Baso % (Auto) 0.3 Neut # (Auto) 7.3 Lymph # (Auto) 0.3 L [place] # (Auto) 0.4 Eos # (Auto) 0.0 Baso # (Auto) 0.0 WBC Differential . Differential Comment Auto diff final PT 10.5 INR 1.0 APTT 29.4 Sodium 128 L Potassium 3.5 Chloride 83 L Carbon Dioxide 34.5 H Anion Gap 11 BUN 16 Creatinine 0.67 Estimated GFR 86 L Random Glucose 123 H Calcium 8.8 Urine Color Urine Clarity Urine pH Ur Specific [place] Urine Protein Urine Glucose (UA) Urine Ketones Urine Occult Blood Urine Nitrate Urine Bilirubin Urine Urobilinogen Ur Leukocyte Esterase Urine RBC Urine WBC Ur Squamous Epith Cells Micro UA Comment Ur Microscopic Review Urine Culture Comments 01/22/18 16:30 WBC RBC Hgb Hct MCV MCH MCHC RDW Plt Count MPV Neut % (Auto) Lymph % (Auto) [place] % (Auto) Eos % (Auto) Baso % (Auto) Neut # (Auto) Lymph # (Auto) [place] # (Auto) Eos # (Auto) Baso # (Auto) WBC Differential Differential Comment PT INR APTT Sodium Potassium Chloride Carbon Dioxide Anion Gap BUN Creatinine Estimated GFR Random Glucose Calcium Urine Color Yellow Urine Clarity Clear Urine pH 5.0 Ur Specific [place] 1.014 Urine Protein Negative Urine Glucose (UA) Negative Urine Ketones Negative Urine Occult Blood Negative Urine Nitrate Negative Urine Bilirubin Negative Urine Urobilinogen 2.0 H Ur Leukocyte Esterase Trace H Urine RBC 1 Urine WBC 2 Ur Squamous Epith Cells 1 Micro UA Comment Cath-culture not ind Ur Microscopic Review Not Reportable Urine Culture Comments Cath-cult not ind Assessment and Plan - Assessment (1) Hypotension Code(s): I95.9 - Hypotension, unspecified Status: Acute Plan: may be related both to continued taking of her BP medications and not eating plan as per public address system installer (2) Ischemic finger ulcer Code(s): L98.499 - Non-pressure chronic ulcer of skin of other sites with unspecified severity Status: Acute Plan: in review of rheumatology and cardiovascular notes a vasculitis but no improvement with steroids (3) Weakness Code(s): R53.1 - Weakness Status: Acute Plan: due to weakness and immobility did not go for testing ordered by cardiovascular - Plan initial plan correct hypotension as per public address system installer Code Status: full Discussed Condition With: patient
[2018-01-22] MEDS: Senna/Docusate Sodium 8.6/50 MG Tablet PO SCH (22:10)
[2018-01-22] MEDS: Enoxaparin Inj 40 MG/0.4 ML Syringe SQ SCH (22:10)
[2018-01-23] MEDS ORDERED: Chlorhexidine Gluconate 2% 1 Pack (2 Cloths) TOPICAL PRN (04:00)
[2018-01-23 04:26] LABS: Baso % (Auto) 0.1 % (0.0-2.0); Hematocrit 33.7 % (35.0-46.0); Hemoglobin 11.4 gm/dL (11.6-15.3); Lymph # (Auto) 0.2 th/mm3 (1.0-4.8); Lymph % (Auto) 4.4 % (9.0-44.0); Mean Corpuscular HGB Conc 33.7 % (32.0-36.0); Mean Corpuscular Hemoglobin 35.2 pg (27.0-34.0); Mean Corpuscular Volume 104.3 fL (80.0-100.0); Mean Platelet Volume 7.6 fL (7.0-11.0); Mono # (Auto) 0.1 th/mm3 (0.0-0.9); Mono % (Auto) 1.6 % (0.0-8.0); Neut # (Auto) 4.7 th/mm3 (1.8-7.7); Neut % (Auto) 93.9 % (16.0-70.0); Platelet Count 373 th/mm3 (150-450); Red Blood Count 3.23 mil/mm3 (4.00-5.30); Red Cell Distribution Width 15.5 % (11.6-17.2)
[2018-01-23] MEDS: Chlorhexidine Gluconate 2% 1 Pack (2 Cloths) TOPICAL SCH (04:26)
[2018-01-23 04:27] LABS: Activated Partial Thrombo Time 36.9 sec (24.3-30.1); INR 1.1 Ratio
[2018-01-23 04:49] LABS: Alanine Aminotransferase 23 U/L (10-53); Albumin 2.2 g/dL (3.4-5.0); Alkaline Phosphatase 129 U/L (45-117); Anion Gap 11 meq/L (5-15); Aspartate Aminotransferase 34 U/L (15-37); Blood Urea Nitrogen 12 mg/dL (7-18); Calcium 7.4 mg/dL (8.5-10.1); Carbon Dioxide 30.5 meq/L (21.0-32.0); Chloride 95 meq/L (98-107); Glomerular Filtration Rate Greater Than 89 mL/min (>89); Glucose,Random 133 mg/dL (74-106); Magnesium 1.5 mg/dL (1.5-2.5); Phosphorus 3.1 mg/dL (2.5-4.9); Potassium 3.2 meq/L (3.5-5.1); Sodium 136 meq/L (136-145); Total Protein 5.6 g/dL (6.4-8.2); Troponin I 0.02 ng/mL (0.02-0.05)
[2018-01-23] MEDS: Sod Chloride 0.9% Inj 1,000 ML IV.CONT SCH ×3 (04:55→21:43)
[2018-01-23 05:18] LABS: Chol/HDL Ratio 3.78 Ratio; HDL Cholesterol 43.9 mg/dL (40.0-60.0)
[2018-01-23 05:42] LABS: Folate 16.4 ng/mL (3.1-17.5)
--- NOTE | 2018-01-23 07:58 | ECG ---
Date Performed: 01/22/2018 Time Performed: 14:56:53 PTAGE: 77 years EKG: Sinus rhythm WITH OCCASIONAL SUPRAVENTRICULAR PREMATURE COMPLEXES RIGHT BUNDLE BRANCH BLOCK ABNORMAL ECG Since th e PREVIOUS TRACING , no significant change noted PREVIOUS TRACIN08/22/2017 07.44 DOCTOR: Bill Cabello Interpretating Date/Time 01/23/2018 07:55:24
[2018-01-23] MEDS ORDERED: Calcium Chloride Inj 1 GM/10 ML Syringe IV.PUSH ONE (08:01)
--- NOTE | 2018-01-23 08:05 | P.PNCC ---
Subjective Subjective Remarks/Hospital Course: 77-year-old female presents with a complaint of weakness. 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 The patient's friend called the primary doctor, Dr. Wood, and reported the patient had not urinated for a day and a half, eaten or drank anything. No loss of consciousness or fall. 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 Patient was started with steroids at one point which seemed to not make much of a difference. No fever. Patient has been unable to get out of bed due to nonfocal weakness. She denies fever chills or night sweats. Subjective 01/23: Afebrile. Not on any vasopressors. Appears comfortable in bed. Will need to be straight cath due to urinary retention. Objective Vital Signs / I&O: Vital Signs 01/22/18 14:38 01/22/18 15:15 01/22/18 15:17 Pulse Rate 92 H 92 H Respiratory Rate 16 16 Blood Pressure 83/56 L 87/60 L Pulse Oximetry 95 94 L 96 01/22/18 16:00 01/22/18 16:30 01/22/18 19:26 Pulse Rate 86 86 116 H Respiratory Rate 16 16 22 Blood Pressure 81/53 L 73/55 L 101/65 Pulse Oximetry 90 L 94 L 96 01/22/18 20:44 01/22/18 21:03 01/22/18 22:00 Pulse Rate 111 H 96 H 96 H Respiratory Rate 19 27 H 21 Blood Pressure 90/63 L 91/58 L 91/64 L Pulse Oximetry 94 L 01/22/18 23:00 01/22/18 23:02 01/23/18 00:00 Pulse Rate 101 H 100 H 89 Respiratory Rate 24 14 15 Blood Pressure 94/62 L 91/67 L Pulse Oximetry 93 L 93 L 97 01/23/18 01:00 01/23/18 02:00 01/23/18 03:00 Pulse Rate 92 H 95 H 92 H Respiratory Rate 17 19 11 L Blood Pressure 91/64 L 97/62 L 94/62 L Pulse Oximetry 97 99 97 01/23/18 04:00 01/23/18 05:00 01/23/18 06:00 Pulse Rate 92 H 93 H 102 H Respiratory Rate 19 23 20 Blood Pressure 89/69 L 98/67 L 109/59 L Pulse Oximetry 97 96 93 L Intake & Output 01/22/18 01/23/18 01/23/18 18:59 06:59 18:59 Intake Total 1000 / 1000 1000 / 1000 Output Total 40 / 40 Balance 1000 / 1000 960 / 960 Weight 45.359 kg 46 kg Intake: IV 1000 / 1000 1000 / 1000 NS Inj 1,000 ML @ 124 mls/hr IV 1000 / 1000 .CONT .Q8H4M [facility] Rx#:[id number] NS Inj 1,000 ML @ Wide Open IV. 1000 / 1000 SIG BOLUS [facility] Rx#:[id number] Output: Urine 40 / 40 Other: Date of Last Bowel Movement 01/17/18 Weight On Admission 46 kg Result Diagrams: 01/23/18 02:48 01/23/18 02:48 Objective Remarks: GENERAL: 77-year-old female currently resting in bed in no acute distress SKIN: Warm and dry. HEAD: Atraumatic. Normocephalic. EYES: Pupils equal and round. No scleral icterus. No injection or drainage. ENT: No nasal bleeding or discharge. Mucous membranes pink and moist. NECK: Trachea midline. No JVD. CARDIOVASCULAR: Regular rate and rhythm. S1, S2. No S4. Without murmur RESPIRATORY: No accessory muscle use. Clear to auscultation. Breath sounds equal bilaterally. GASTROINTESTINAL: Abdomen soft, non-tender, nondistended. Hepatic and splenic margins not palpable. MUSCULOSKELETAL: Extremities with ischemic eschars bilaterally involving the hands. NEUROLOGICAL: Awake and alert. No obvious cranial nerve deficits. Motor grossly within normal limits. Five out of 5 muscle strength in the arms and legs. Normal speech. PSYCHIATRIC: Appropriate mood and affect; insight and judgment normal. Assessment and Plan - Assessment and Plan Plan: Neuro/Psych: Depressive disorder NOS Holding duloxetine 20 mg daily and quetiapine 12.5 mg daily Acetaminophen 650 p.o. every 6 hours as needed fever/pain 1 through 5 Oxycodone 5 mg p.o. every 4 hours as needed pain 6 - 10 CV: Iatrogenic hypertension Holding metoprolol tartrate 25 mg daily, nifedipine 30 mg daily and nitroglycerin patch 0.2 mg an hour patch on 12 hours off 12 hours Continue aspirin 81 mg daily 2D echocardiogram ordered. Troponin 0 0.02 Resp: Nasal cannula to maintain saturations greater than equal to 92% Incentive spirometry while awake GI: Hypo-albuminemia Advance diet as tolerated Famotidine for GI prophylaxis Docusate sodium/senna 1 tablet twice daily for bowel regimen : Acute urinary retention Straight cath as needed Endo: Chronic methylprednisolone use grams daily for likely small vessel vasculitis Sliding scale insulin with Accu-Cheks to maintain euglycemia TSH ordered for a.m. Renal: Creatinine currently within normal limits Monitor urine output Accurate I's and O's Heme: Macrocytic anemia Monitor CBC daily. Follow trends. Continue folic acid 1 mg daily ID: Monitor for signs and symptomatology infection UA negative. Blood cultures 2 pending MSK/Rheum: Small vessel vasculitis Osteo-arthritis Noted BARBY was 1:320/speckled Confirmatory test reveal an anti-beta-2 glycoprotein IgM of elevated 77. Otherwise, remainder essentially negative including double-stranded DNA, [place] PT evaluate and treat Continue steroids as above Continue ergocalciferol 50.000 units 1 tablet weekly FEN: Hypokalemia/acute Hypomagnesia/acute Hypocalcemia/acute Received 40 milliequivalents potassium chloride p.o. twice daily 2 dosages, 2 g mag sulfate IV 1 and mag oxide 4 mg p.o. twice daily 2 dosages and 2.5 mg calcium chloride. Recheck labs in a.m. Access -Utilize peripheral IV. Central line if indicated Prophylaxis -GI -famotidine -DVT SCD/enoxaparin Level 2 follow-up Patient is stable from a critical care medicine standpoint. Assign care to hospitalist in a.m. 01/24.
[2018-01-23] MEDS ORDERED: Potassium Chlor 20 mEq Premix 20 MEQ/100 ML PIGGYBACK IV.SIG PRN ×2 (08:23)
[2018-01-23] MEDS ORDERED: Potassium Phosphate 500 MG Soluble Tablet PO PRN ×2 (08:23)
[2018-01-23] MEDS ORDERED: Magnesium Sulfate Inj 4 GM in Sodium Chlor 0.9% Inj 92 ML IV.SIG PRN (08:23)
[2018-01-23] MEDS ORDERED: Dextrose 50% in Water 50 ML Vial IV.PUSH PRN (08:23)
[2018-01-23] MEDS ORDERED: Potassium Chloride 25 MEQ Effervescent Tablet PO PRN (08:23)
[2018-01-23] MEDS ORDERED: Sodium Phosphate Inj 30 MMOL in Sodium Chlor 0.9% Inj 250 ML IV.SIG PRN (08:23)
[2018-01-23] MEDS ORDERED: Magnesium Oxide 400 MG Tablet PO PRN (08:23)
[2018-01-23] MEDS ORDERED: Magnesium Sulfate Inj 2 GM in Sodium Chlor 0.9% Inj 96 ML IV.SIG PRN (08:23)
[2018-01-23] MEDS ORDERED: Potassium Phosphate Inj 30 MMOL in Sodium Chlor 0.9% Inj 250 ML IV.SIG PRN (08:23)
[2018-01-23] MEDS ORDERED: Potassium Chlor 40 mEq Premix 40 MEQ/100 ML PIGGYBACK IV.SIG PRN ×2 (08:23)
[2018-01-23] MEDS: Magnesium Oxide 400 MG Tablet PO SCH ×2 (09:42→21:44)
[2018-01-23] MEDS: Folic Acid 1 MG Tablet PO SCH (10:44)
[2018-01-23] MEDS: Senna/Docusate Sodium 8.6/50 MG Tablet PO SCH ×2 (10:44→21:45)
[2018-01-23] MEDS: Mag Sulf 1 gm/100 ml Premix 100 ML IV.SIG SCH ×2 (10:45→17:50)
[2018-01-23 11:11] LABS: Hepatitits B Surface Antigen Nonreactive (Nonreactive)
[2018-01-23 11:44] LABS: Hepatitis A IgM Antibody Nonreactive (Nonreactive)
[2018-01-23] MEDS: Insulin NovoLOG Aspart Correctional Sugar Inj SQ SCH ×3 (13:00→21:57)
--- NOTE | 2018-01-23 17:17 | ECHRPT ---
Indication: Heart Failure CONCLUSIONS Normal left ventricular size. Wall thickness is normal. The left ventricular systolic function is normal with an estimated ejection fraction in the range of 55-60%. Mitral annular calcification is present. Aortic valve sclerosis is present. There is trace tricuspid valve regurgitation. BP: / HR: Rhythm: MEASUREMENTS (Male / Female) Normal Values Technical Quality: 2D ECHO LV Diastolic Diameter PLAX 3.7 cm 4.2 - 5.9 / 3.9 - 5.3 cm LV Systolic Diameter PLAX 2.7 cm IVS Diastolic Thickness 0.8 cm 0.6 - 1.0 / 0.6 - 0.9 cm LVPW Diastolic Thickness 0.6 cm 0.6 - 1.0 / 0.6 - 0.9 cm LV Relative Wall Thickness 0.4 LVOT Diameter 1.6 cm LV Ejection Fraction MOD 4C 53.8 % LV Ejection Fraction 4C AL 54.5 % DOPPLER AV Peak Velocity 109.0 cm/s AV Peak Gradient 4.8 mmHg LVOT Peak Velocity 80.5 cm/s LVOT Peak Gradient 2.6 mmHg AV Area Cont Eq pk 1.5 cm Mitral E Point Velocity 55.4 cm/s Mitral A Point Velocity 91.4 cm/s Mitral E to A Ratio 0.6 PV Peak Velocity 93.7 cm/s PV Peak Gradient 3.5 mmHg FINDINGS LEFT VENTRICLE Normal left ventricular size. Wall thickness is normal. The left ventricular systolic function is normal with an estimated ejection fraction in the range of 55-60%. There is asynchronous contraction possibly from an intraventricular conduction delay. RIGHT VENTRICLE Normal right ventricular size and systolic function. LEFT ATRIUM The left atrial size is normal. RIGHT ATRIUM The right atrial size is normal. ATRIAL SEPTUM Normal atrial septal thickness without atrial level shunting by limited color doppler interrogation. AORTA The aortic root and proximal ascending aorta are normal in size on limited imaging. MITRAL VALVE Mitral annular calcification is present. AORTIC VALVE Aortic valve sclerosis is present. TRICUSPID VALVE There is trace tricuspid valve regurgitation. PULMONARY VALVE The pulmonary valve is not well visualized. VESSELS The inferior vena cava is normal in size. PERICARDIUM No pericardial effusion. Jeremi Rivas MD (Electronically Signed) Final Date:23 January 2018 17:15
[2018-01-23] MEDS: Famotidine 20 MG Tablet PO SCH (21:44)
[2018-01-23] MEDS: Enoxaparin Inj 40 MG/0.4 ML Syringe SQ SCH (21:44)
[2018-01-24] LABS: Baso % (Auto) 0.1 % (0.0-2.0); Hematocrit 32.9 % (35.0-46.0); Lymph # (Auto) 0.6 th/mm3 (1.0-4.8); Lymph % (Auto) 4.6 % (9.0-44.0); Mean Corpuscular HGB Conc 33.4 % (32.0-36.0); Mean Corpuscular Hemoglobin 35.3 pg (27.0-34.0); Mean Corpuscular Volume 105.7 fL (80.0-100.0); Mean Platelet Volume 7.7 fL (7.0-11.0); Mono % (Auto) 7.7 % (0.0-8.0); Neut # (Auto) 11.7 th/mm3 (1.8-7.7); Neut % (Auto) 87.6 % (16.0-70.0); Platelet Count 382 th/mm3 (150-450); Red Blood Count 3.12 mil/mm3 (4.00-5.30); Red Cell Distribution Width 15.4 % (11.6-17.2); White Blood Count 13.3 th/mm3 (4.0-11.0)
[2018-01-24 00:13] LABS: Activated Partial Thrombo Time 30.3 sec (24.3-30.1); Prothrombin Time 10.1 sec (9.8-11.6)
[2018-01-24 00:39] LABS: Alanine Aminotransferase 33 U/L (10-53); Albumin 2.4 g/dL (3.4-5.0); Alkaline Phosphatase 146 U/L (45-117); Anion Gap 7 meq/L (5-15); Aspartate Aminotransferase 40 U/L (15-37); Blood Urea Nitrogen 14 mg/dL (7-18); Carbon Dioxide 27.7 meq/L (21.0-32.0); Chloride 100 meq/L (98-107); Glomerular Filtration Rate Greater Than 89 mL/min (>89); Glucose,Random 155 mg/dL (74-106); Phosphorus 1.6 mg/dL (2.5-4.9); Potassium 4.8 meq/L (3.5-5.1); Sodium 135 meq/L (136-145)
[2018-01-24] MEDS: Sod Chloride 0.9% Inj 1,000 ML IV.CONT SCH ×5 (02:00→20:33)
[2018-01-24] MEDS: Chlorhexidine Gluconate 2% 1 Pack (2 Cloths) TOPICAL SCH (04:00)
[2018-01-24] MEDS: Morphine Sulfate Inj 2 MG/ML Vial IV.PUSH PRN ×3 (09:31→16:52)
[2018-01-24] MEDS: Senna/Docusate Sodium 8.6/50 MG Tablet PO SCH ×2 (09:32→20:21)
[2018-01-24] MEDS: Magnesium Oxide 400 MG Tablet PO SCH ×2 (09:32→20:20)
[2018-01-24] MEDS: Folic Acid 1 MG Tablet PO SCH (09:33)
[2018-01-24] MEDS: Insulin NovoLOG Aspart Correctional Sugar Inj SQ SCH ×4 (11:39→20:26)
[2018-01-24] MEDS: Famotidine 20 MG Tablet PO SCH (20:21)
[2018-01-24] MEDS: Enoxaparin Inj 40 MG/0.4 ML Syringe SQ SCH (20:32)
[2018-01-25] MEDS: Morphine Sulfate Inj 2 MG/ML Vial IV.PUSH PRN ×7 (01:03→23:04)
[2018-01-25] MEDS: Chlorhexidine Gluconate 2% 1 Pack (2 Cloths) TOPICAL SCH (03:17)
[2018-01-25] MEDS: Sod Chloride 0.9% Inj 1,000 ML IV.CONT SCH ×3 (04:26→13:53)
[2018-01-25 05:55] LABS: Baso % (Auto) 0.1 % (0.0-2.0); Eos # (Auto) 0.1 th/mm3 (0.0-0.4); Eos % (Auto) 0.7 % (0.0-4.0); Hematocrit 37.2 % (35.0-46.0); Lymph # (Auto) 1.2 th/mm3 (1.0-4.8); Lymph % (Auto) 12.4 % (9.0-44.0); Mean Corpuscular HGB Conc 32.4 % (32.0-36.0); Mean Corpuscular Hemoglobin 35.2 pg (27.0-34.0); Mean Corpuscular Volume 108.8 fL (80.0-100.0); Mean Platelet Volume 7.7 fL (7.0-11.0); Mono # (Auto) 0.6 th/mm3 (0.0-0.9); Mono % (Auto) 6.1 % (0.0-8.0); Neut # (Auto) 7.8 th/mm3 (1.8-7.7); Neut % (Auto) 80.7 % (16.0-70.0); Platelet Count 348 th/mm3 (150-450); Red Blood Count 3.41 mil/mm3 (4.00-5.30); Red Cell Distribution Width 15.8 % (11.6-17.2); White Blood Count 9.7 th/mm3 (4.0-11.0)
[2018-01-25 06:29] LABS: Anion Gap 8 meq/L (5-15); Blood Urea Nitrogen 9 mg/dL (7-18); Carbon Dioxide 22.6 meq/L (21.0-32.0); Chloride 105 meq/L (98-107); Glomerular Filtration Rate Greater Than 89 mL/min (>89); Glucose,Random 82 mg/dL (74-106); Potassium 4.5 meq/L (3.5-5.1); Sodium 136 meq/L (136-145)
--- NOTE | 2018-01-25 06:40 | XR ---
EXAM DATE: 01/25/2018 6:19 AM EDT AGE/SEX: 77 years / Female INDICATIONS: Shortness of breath. CLINICAL DATA: This is the patient's initial encounter. Patient reports that signs and symptoms have been present for 1 day and indicates a pain score of Nonresponsive. MEDICAL/SURGICAL HISTORY: . Cirrhosis. Hypertension. . Kyphoplasty COMPARISON: C, CHEST 1V SINGLE AP, 12/16/2017. . FINDINGS: Progressive diffuse interstitial opacities with bilateral lower lung zone mild airspace disease. Card iac silhouette is enlarged with indistinct central pulmonary vascularity. Cement augmentation noted i n the thoracic spine with old left-sided rib fractures. CONCLUSION: 1. Cardiomegaly with mild pulmonary edema pattern.. 2. Mild bibasilar airspace disease, presumably atelectasis. Electronically signed by: Darwin Jacobson MD 01/25/2018 6:39 AM EDT
[2018-01-25] MEDS: Insulin NovoLOG Aspart Correctional Sugar Inj SQ SCH ×4 (08:37→20:55)
[2018-01-25] MEDS: Senna/Docusate Sodium 8.6/50 MG Tablet PO SCH ×2 (09:59→20:55)
[2018-01-25] MEDS: Folic Acid 1 MG Tablet PO SCH (09:59)
--- NOTE | 2018-01-25 13:06 | P.PNIM ---
Subjective Interval history: LATE ENTRY NOTE NOTE ENTERED ON 01/24/18 FAILED TO SAVE IN [employer]. Pt with NO new complaints. Physical Exam Vital signs: 01/24/18 16:00 01/24/18 20:00 01/25/18 00:00 Temperature 97.6 F 97.3 F L 97.4 F L Pulse Rate 98 H 97 H 106 H Respiratory Rate 17 18 18 Blood Pressure 91/69 L 102/77 107/86 Pulse Oximetry 99 99 97 01/25/18 08:00 01/25/18 09:57 01/25/18 12:00 Temperature 97.6 F 97.2 F L Pulse Rate 132 H 132 H Respiratory Rate 17 17 Blood Pressure 133/97 H 114/86 Pulse Oximetry 93 L 96 90 L Narrative: GENERAL: SKIN: Warm and dry. bilateral finger pain with discoloration with ulcerations rt middle finger ,left 3rd 2,3 4 finger involvement HEAD: Normocephalic. EYES: No scleral icterus. No injection or drainage. NECK: Supple, trachea midline. No JVD or lymphadenopathy. CARDIOVASCULAR: Regular rate and rhythm without murmurs, gallops, or rubs. RESPIRATORY: Breath sounds equal bilaterally. No accessory muscle use. GASTROINTESTINAL: Abdomen soft, non-tender, nondistended. MUSCULOSKELETAL: No cyanosis, or edema. BACK: Nontender without obvious deformity. No CVA tenderness. - Urinary Catheter Management Straight Cath placed during this visit: yes, but has since been removed by the nurse Reason for continuing: Not indwelling catheter Insertion date: 01/22/18 Insertion time: 16:35 Removal date: 01/22/18 Removal time: 07:00 Results - Labs CBC & Chem 7: 01/25/18 05:00 01/25/18 05:00 01/22/18 23:05 Blood - Peripheral Aerobic Blood Culture - Preliminary No growth in 3 days 01/22/18 23:05 Blood - Peripheral Anaerobic Blood Culture - Preliminary No growth in 3 days 01/22/18 23:00 Blood - Peripheral Aerobic Blood Culture - Preliminary No growth in 3 days 01/22/18 23:00 Blood - Peripheral Anaerobic Blood Culture - Preliminary No growth in 3 days - Imaging Chest X-Ray 01/25/18 06:00 1. Cardiomegaly with mild pulmonary edema pattern.. 2. Mild bibasilar airspace disease, presumably atelectasis. Assessment and Plan - Assessment (1) Ischemic finger ulcer Code(s): L98.499 - Non-pressure chronic ulcer of skin of other sites with unspecified severity Status: Acute Plan: - symptoms and presentation seem consistent for Raynaud's disease - BARBY 1:320, speckled (12/16/17) - Pt saw rheumatology 01/13/18, Dr. Cortez - Pt discharged on neurontin, NTG oint, prednisone taper, and CCB (norvasc) - Pt states that she was unable to tolerated NTG ointment - pt/significant other adamantly request that I currently make NO changes in pt' s narcotic regimen - Will request evaluation by Hand Surgery on 01/26/18 - DVT prophylaxis supportive care. - daily PT - Pt will need SNF at the conclusion of this hospitalization. ETOH Abuse - continue MVI, thiamin, and folate - [facility] protocol HTN, essential - continue CCB Generalized Weakness - daily PT - Pt will need SNF Narcotic Dependency - will attempt to wean (2) ETOH abuse Code(s): F10.10 - Alcohol abuse, uncomplicated Status: Acute (3) HTN (hypertension) Code(s): I10 - Essential (primary) hypertension Status: Acute (4) Weakness Code(s): R53.1 - Weakness Status: Acute
--- NOTE | 2018-01-25 13:31 | P.PNIM ---
Subjective Interval history: No new complaints. Physical Exam Vital signs: 01/25/18 08:00 01/25/18 09:57 01/25/18 12:00 Temperature 97.6 F 97.2 F L Pulse Rate 132 H 132 H Respiratory Rate 17 17 Blood Pressure 133/97 H 114/86 Pulse Oximetry 93 L 96 90 L Narrative: GENERAL: SKIN: Warm and dry. bilateral finger pain with discoloration with ulcerations rt middle finger ,left 3rd 2,3 4 finger involvement HEAD: Normocephalic. EYES: No scleral icterus. No injection or drainage. NECK: Supple, trachea midline. No JVD or lymphadenopathy. CARDIOVASCULAR: Regular rate and rhythm without murmurs, gallops, or rubs. RESPIRATORY: Breath sounds equal bilaterally. No accessory muscle use. GASTROINTESTINAL: Abdomen soft, non-tender, nondistended. MUSCULOSKELETAL: No cyanosis, or edema. BACK: Nontender without obvious deformity. No CVA tenderness. - Urinary Catheter Management Straight Cath placed during this visit: yes, but has since been removed by the nurse Reason for continuing: Not indwelling catheter Insertion date: 01/22/18 Insertion time: 16:35 Removal date: 01/22/18 Removal time: 07:00 Results - Labs CBC & Chem 7: 01/29/18 06:39 01/29/18 06:39 Microbiology 01/22/18 23:05 Blood - Peripheral Aerobic Blood Culture - Preliminary No growth in 3 days 01/22/18 23:05 Blood - Peripheral Anaerobic Blood Culture - Preliminary No growth in 3 days 01/22/18 23:00 Blood - Peripheral Aerobic Blood Culture - Preliminary No growth in 3 days 01/22/18 23:00 Blood - Peripheral Anaerobic Blood Culture - Preliminary No growth in 3 days - Imaging Impressions Chest X-Ray 01/25/18 06:00 CONCLUSION: 1. Cardiomegaly with mild pulmonary edema pattern.. 2. Mild bibasilar airspace disease, presumably atelectasis. Assessment and Plan - Assessment (1) Ischemic finger ulcer Code(s): L98.499 - Non-pressure chronic ulcer of skin of other sites with unspecified severity Status: Acute Plan: - symptoms and presentation seem consistent for Raynaud's disease - BARBY 1:320, speckled (12/16/17) - Pt saw rheumatology 01/13/18, Dr. Offenberg - Pt discharged on neurontin, NTG oint, prednisone taper, and CCB (norvasc) - Pt states that she was unable to tolerated NTG ointment - pt/significant other adamantly request that I currently make NO changes in pt' s narcotic regimen - Will request evaluation by Hand Surgery on 01/26/18 - DVT prophylaxis supportive care. - daily PT - Pt will need SNF at the conclusion of this hospitalization. - continue methylprednisone - consult hand surgery 01/26 for evaluation ETOH Abuse - continue MVI, thiamin, and folate - [facility] protocol HTN, essential - continue CCB Generalized Weakness - daily PT - Pt will need SNF Narcotic Dependency - will attempt to wean - continue roxicodone 5mg q4h prn - decrease morphine 2mg to q4h prn (2) ETOH abuse Code(s): F10.10 - Alcohol abuse, uncomplicated Status: Acute (3) HTN (hypertension) Code(s): I10 - Essential (primary) hypertension Status: Acute (4) Weakness Code(s): R53.1 - Weakness Status: Acute
[2018-01-25] MEDS: Famotidine 20 MG Tablet PO SCH (20:55)
[2018-01-25] MEDS: Enoxaparin Inj 40 MG/0.4 ML Syringe SQ SCH (20:55)
[2018-01-26] MEDS: Chlorhexidine Gluconate 2% 1 Pack (2 Cloths) TOPICAL SCH (05:01)
[2018-01-26] MEDS: Morphine Sulfate Inj 2 MG/ML Vial IV.PUSH PRN ×4 (07:35→20:36)
[2018-01-26] MEDS: Insulin NovoLOG Aspart Correctional Sugar Inj SQ SCH ×2 (08:02→11:13)
--- NOTE | 2018-01-26 08:09 | P.PNIM ---
Subjective Interval history: Follow up: Ischemic finger ulcer/ Raynaud's disease and hypotension patient continues to reports intermitted pain in fingers no new concerns/complaints Physical Exam Vital signs: Vital Signs 01/25/18 08:00 01/25/18 09:57 01/25/18 12:00 Temperature 97.6 F 97.2 F L Pulse Rate 132 H 132 H Respiratory Rate 17 17 Blood Pressure 133/97 H 114/86 Pulse Oximetry 93 L 96 90 L 01/25/18 16:00 01/25/18 18:07 01/25/18 20:00 Temperature 97.6 F 97.6 F Pulse Rate 121 H 117 H Respiratory Rate 17 20 Blood Pressure 107/76 113/79 Pulse Oximetry 92 L 92 L 93 L 01/26/18 04:00 Temperature 97.3 F L Pulse Rate 124 H Respiratory Rate 18 Blood Pressure 113/68 Pulse Oximetry 94 L Intake & Output 01/25/18 01/26/18 01/26/18 18:59 06:59 18:59 Intake Total 1869 Balance 1869 Weight 54.2 kg Intake: IV 1869 NS Inj 1,000 ML @ 124 mls/hr IV 1869 .CONT .Q8H4M [facility] Rx#:[id number] Other: # Voids 2 Date of Last Bowel Movement 01/23/18 # Bowel Movements 1 Narrative: GENERAL: 77 year old female A&O in no acute distress SKIN: Warm and dry. bilateral finger pain with discoloration with ulcerations rt 3rd finger ,left 3rd 2,3 4 finger involvement CARDIOVASCULAR: Regular rate and rhythm RESPIRATORY: Breath sounds equal bilaterally. No accessory muscle use. GASTROINTESTINAL: Abdomen soft, non-tender, nondistended. MUSCULOSKELETAL: No cyanosis, or edema. BACK: Nontender without obvious deformity. No CVA tenderness. - Urinary Catheter Management Straight Cath placed during this visit: yes, but has since been removed by the nurse Reason for continuing: Not indwelling catheter Insertion date: 01/22/18 Insertion time: 16:35 Removal date: 01/22/18 Removal time: 07:00 Results - Labs CBC & Chem 7: 01/25/18 05:00 01/25/18 05:00 Laboratory Results - last 24 hr 01/25/18 01/25/18 01/25/18 08:10 11:46 17:15 POC Glucose 82 94 155 H 01/25/18 19:46 POC Glucose 178 H Microbiology 01/22/18 23:05 Blood - Peripheral Aerobic Blood Culture - Preliminary No growth in 3 days 01/22/18 23:05 Blood - Peripheral Anaerobic Blood Culture - Preliminary No growth in 3 days 01/22/18 23:00 Blood - Peripheral Aerobic Blood Culture - Preliminary No growth in 3 days 01/22/18 23:00 Blood - Peripheral Anaerobic Blood Culture - Preliminary No growth in 3 days Assessment and Plan - Assessment (1) Ischemic finger ulcer Code(s): L98.499 - Non-pressure chronic ulcer of skin of other sites with unspecified severity Status: Acute Plan: Ischemic finger ulceration - symptoms and presentation seem consistent for Raynaud's disease - BARBY 1:320, speckled (12/16/17) - Pt saw rheumatology 01/13/18, Dr. Cortez - Pt discharged on neurontin, NTG oint, prednisone taper, and CCB (norvasc) - patient was hypotensive on arrival but BP is improving, will resume CCB - Pt states that she was unable to tolerated NTG ointment - supportive care. - daily PT - Pt will likely need SNF at the conclusion of this hospitalization. - continue methylprednisone - consult hand surgery 01/26 for evaluation - encouraged patient to wear gloves and socks ETOH Abuse - continue MVI, thiamin, and folate - [facility] protocol HTN, essential Was hypotensive on arrival which has resolved - resume Norvasc at 2.5 mg daily with hold parameters Generalized Weakness - daily PT - Pt will need SNF Narcotic Dependency - will attempt to wean - continue roxicodone 5mg q4h prn - decrease morphine 2mg to q4h prn (2) ETOH abuse Code(s): F10.10 - Alcohol abuse, uncomplicated Status: Acute (3) HTN (hypertension) Code(s): I10 - Essential (primary) hypertension Status: Acute (4) Weakness Code(s): R53.1 - Weakness Status: Acute
[2018-01-26] MEDS: Folic Acid 1 MG Tablet PO SCH (08:25)
[2018-01-26] MEDS: Senna/Docusate Sodium 8.6/50 MG Tablet PO SCH ×2 (08:26→20:38)
[2018-01-26] MEDS: Enoxaparin Inj 40 MG/0.4 ML Syringe SQ SCH (20:37)
[2018-01-26] MEDS: Famotidine 20 MG Tablet PO SCH (20:38)
[2018-01-27] MEDS: Morphine Sulfate Inj 2 MG/ML Vial IV.PUSH PRN ×2 (00:49→12:55)
[2018-01-27] MEDS: Chlorhexidine Gluconate 2% 1 Pack (2 Cloths) TOPICAL SCH (04:11)
[2018-01-27] MEDS: Folic Acid 1 MG Tablet PO SCH (08:29)
[2018-01-27] MEDS: Senna/Docusate Sodium 8.6/50 MG Tablet PO SCH ×2 (08:29→21:29)
--- NOTE | 2018-01-27 08:59 | P.PNIM ---
Subjective Interval history: Follow up: Ischemic finger ulcer/ Raynaud's disease and hypotension patient report no pain at this time. RN has provided patient with warm compress to bilateral hands which has alleviated much of the pain Physical Exam Vital signs: Vital Signs 01/26/18 11:38 01/26/18 14:41 01/26/18 20:00 Temperature 97.9 F 98.4 F 97.9 F Pulse Rate 131 H 135 H 115 H Respiratory Rate 18 18 18 Blood Pressure 115/86 113/80 108/83 Pulse Oximetry 94 L 90 L 91 L 01/27/18 00:00 Temperature 97.2 F L Pulse Rate 99 H Respiratory Rate 18 Blood Pressure 119/78 Pulse Oximetry 90 L Intake & Output 01/26/18 01/27/18 01/27/18 18:59 06:59 18:59 Other: # Voids 1 Date of Last Bowel Movement 01/23/18 # Bowel Movements 1 Narrative: GENERAL: 77 year old female A&O in no acute distress SKIN: Warm and dry. dry crusted ulcerations bilateral finger pain rt 3rd finger and left 3rd finger involvement CARDIOVASCULAR: Regular rate and rhythm RESPIRATORY: Breath sounds equal bilaterally. No accessory muscle use. GASTROINTESTINAL: Abdomen soft, non-tender, nondistended. MUSCULOSKELETAL: No cyanosis, or edema. BACK: Nontender without obvious deformity. No CVA tenderness. - Urinary Catheter Management Straight Cath placed during this visit: yes, but has since been removed by the nurse Reason for continuing: Not indwelling catheter Insertion date: 01/22/18 Insertion time: 16:35 Removal date: 01/22/18 Removal time: 07:00 Results - Labs CBC & Chem 7: 01/25/18 05:00 01/25/18 05:00 Laboratory Results - last 24 hr 01/26/18 10:56 POC Glucose 147 H Microbiology 01/22/18 23:05 Blood - Peripheral Aerobic Blood Culture - Preliminary No growth in 4 days 01/22/18 23:05 Blood - Peripheral Anaerobic Blood Culture - Preliminary No growth in 4 days 01/22/18 23:00 Blood - Peripheral Aerobic Blood Culture - Preliminary No growth in 4 days 01/22/18 23:00 Blood - Peripheral Anaerobic Blood Culture - Preliminary No growth in 4 days Assessment and Plan - Assessment (1) Ischemic finger ulcer Code(s): L98.499 - Non-pressure chronic ulcer of skin of other sites with unspecified severity Status: Acute Plan: Ischemic finger ulceration - symptoms and presentation seem consistent for Raynaud's disease - BARBY 1:320, speckled (12/16/17) - Pt saw rheumatology 01/13/18, Dr. Cortez - Pt discharged on neurontin, NTG oint, prednisone taper, and CCB (norvasc) - patient was hypotensive on arrival but BP is improving, will resume CCB - Pt states that she was unable to tolerated NTG ointment - supportive care. - daily PT - Pt will likely need SNF at the conclusion of this hospitalization. - continue methylprednisone - consult hand surgery 01/26 for evaluation - encouraged patient to wear gloves and socks - resumed Norvasc at 2.5 mg daily (01/26) - hand pain alleviated by current pain regiment and warm compresses to hands - discussed with patient resuming nitroglycerin paste to finger tips, she was agreeable to trying - resume topical nitropaste applications to finger tips Q8H - Patient receiving Medrol 8 mg will start taper (01/27) decrease to 4 mg daily ETOH Abuse - continue MVI, thiamin, and folate - [facility] protocol HTN, essential Was hypotensive on arrival which has resolved - resume Norvasc at 2.5 mg daily Generalized Weakness - daily PT - Pt will need SNF Narcotic Dependency - will attempt to wean - continue Roxicodone 5mg to 10mg q4h prn - morphine 2mg to q4h prn breakthrough pain only - Concern for narcotic abuse. Per RN patient's significant other reported to the nursing staff that he has been providing patient with his morphine at home for pain relief. (2) ETOH abuse Code(s): F10.10 - Alcohol abuse, uncomplicated Status: Acute (3) HTN (hypertension) Code(s): I10 - Essential (primary) hypertension Status: Acute (4) Weakness Code(s): R53.1 - Weakness Status: Acute
[2018-01-27] MEDS: amLODIPine 5 MG Tablet PO SCH (14:50)
[2018-01-27] MEDS: Famotidine 20 MG Tablet PO SCH (21:28)
[2018-01-27] MEDS: Enoxaparin Inj 40 MG/0.4 ML Syringe SQ SCH (21:29)
[2018-01-28] MEDS: Senna/Docusate Sodium 8.6/50 MG Tablet PO SCH ×2 (08:22→23:01)
[2018-01-28] MEDS: Folic Acid 1 MG Tablet PO SCH (08:22)
[2018-01-28] MEDS: amLODIPine 5 MG Tablet PO SCH (08:23)
--- NOTE | 2018-01-28 11:53 | P.PNIM ---
Subjective Interval history: Pt complains of pain in her hands Nurse reports that the pt was difficult to arouse this morning Her complains of a lot of issues with the night staff last night not providing pain medications and not assisting the pt with eating or getting her to the bedside commode. Physical Exam Vital signs: Vital Signs 01/27/18 12:00 01/27/18 16:00 01/27/18 20:00 Temperature 98.3 F 97.6 F 98.4 F Pulse Rate 113 H 110 H 108 H Respiratory Rate 18 18 20 Blood Pressure 130/69 142/79 H 110/74 Pulse Oximetry 94 L 90 L 92 L 01/28/18 00:00 01/28/18 04:00 01/28/18 08:00 Temperature 98.4 F 99.0 F Pulse Rate 108 H 85 Respiratory Rate 16 16 17 Blood Pressure 107/76 103/58 L Pulse Oximetry 93 L 92 L 01/28/18 09:46 Temperature Pulse Rate Respiratory Rate 16 Blood Pressure Pulse Oximetry Intake & Output 01/27/18 01/28/18 01/28/18 18:59 06:59 18:59 Intake Total 880 / 880 Balance 880 / 880 Weight 53.7 kg Intake: Oral 880 / 880 Other: # Voids 2 1 Date of Last Bowel Movement 01/23/18 01/23/18 Narrative: GENERAL: 77 year old female A&O in no acute distress SKIN: Warm and dry. dry crusted ulcerations bilateral 3rd fingers CARDIO: Regular RESP: Breath sounds equal bilaterally. ABD: +BS, soft, non-tender, nondistended. EXT: No edema. - Urinary Catheter Management Straight Cath placed during this visit: yes, but has since been removed by the nurse Reason for continuing: Not indwelling catheter Insertion date: 01/22/18 Insertion time: 16:35 Removal date: 01/22/18 Removal time: 07:00 Results - Labs CBC & Chem 7: 01/25/18 05:00 01/25/18 05:00 Microbiology 01/22/18 23:05 Blood - Peripheral Aerobic Blood Culture - Final No growth in 5 days 01/22/18 23:05 Blood - Peripheral Anaerobic Blood Culture - Final No growth in 5 days 01/22/18 23:00 Blood - Peripheral Aerobic Blood Culture - Final No growth in 5 days 01/22/18 23:00 Blood - Peripheral Anaerobic Blood Culture - Final No growth in 5 days - Imaging Chest X-Ray 01/25/18 06:00 CONCLUSION: 1. Cardiomegaly with mild pulmonary edema pattern.. 2. Mild bibasilar airspace disease, presumably atelectasis. Assessment and Plan - Assessment (1) Ischemic finger ulcer Code(s): L98.499 - Non-pressure chronic ulcer of skin of other sites with unspecified severity Status: Acute Plan: Ischemic finger ulceration - Symptoms and presentation seem consistent for Raynaud's disease - BARBY 1:320, speckled (12/16/17) - Pt saw rheumatology 01/13/18, Dr. Cortez - Pt previously discharged on Neurontin, NTG oint, prednisone taper, and CCB ( Norvasc) - Patient was hypotensive on arrival but BP is improving, CCB resumed on 01/26 - Pt reported she previously couldn't tolerate the Nitro paste - Daily PT - Pt will likely need SNF at the conclusion of this hospitalization. - Continue methylprednisone, taper - Encouraged patient to wear gloves and socks. - Hand pain alleviated by current pain regiment and warm compresses to hands. Ordered a K-Thermia for the pts hands. - Discussed with patient resuming nitroglycerin paste to finger tips, she was agreeable to trying - Topical nitro paste applications to finger tips Q8H resumed on 01/27 - Patient receiving Medrol 8 mg will start taper (01/27) decrease to 4 mg daily ETOH Abuse - continue MVI, thiamin, and folate - [facility] protocol HTN, essential - Was hypotensive on arrival which has resolved - Cont. Norvasc at 2.5 mg daily Generalized Weakness - daily PT - Pt will need SNF Narcotic Dependency - Continue Roxicodone 5mg to 10mg q4h prn - Morphine 2mg to q4h prn breakthrough pain only - Concern for narcotic abuse. Per RN patient's significant other reported to the nursing staff that he has been providing patient with his morphine at home for pain relief. (2) ETOH abuse Code(s): F10.10 - Alcohol abuse, uncomplicated Status: Acute (3) HTN (hypertension) Code(s): I10 - Essential (primary) hypertension Status: Acute (4) Weakness Code(s): R53.1 - Weakness Status: Acute
[2018-01-28] MEDS: Morphine Sulfate Inj 2 MG/ML Vial IV.PUSH PRN (12:25)
[2018-01-28] MEDS: Famotidine 20 MG Tablet PO SCH (23:01)
[2018-01-28] MEDS: Enoxaparin Inj 40 MG/0.4 ML Syringe SQ SCH (23:01)
[2018-01-29 07:16] LABS: Baso # (Auto) 0.1 th/mm3 (0.0-0.2); Baso % (Auto) 0.9 % (0.0-2.0); Eos # (Auto) 0.2 th/mm3 (0.0-0.4); Eos % (Auto) 2.1 % (0.0-4.0); Hematocrit 31.2 % (35.0-46.0); Hemoglobin 10.5 gm/dL (11.6-15.3); Lymph % (Auto) 12.6 % (9.0-44.0); Mean Corpuscular HGB Conc 33.7 % (32.0-36.0); Mean Corpuscular Hemoglobin 35.6 pg (27.0-34.0); Mean Corpuscular Volume 105.6 fL (80.0-100.0); Mean Platelet Volume 7.7 fL (7.0-11.0); Mono # (Auto) 0.6 th/mm3 (0.0-0.9); Mono % (Auto) 7.8 % (0.0-8.0); Neut # (Auto) 6.2 th/mm3 (1.8-7.7); Neut % (Auto) 76.6 % (16.0-70.0); Platelet Count 400 th/mm3 (150-450); Red Blood Count 2.95 mil/mm3 (4.00-5.30); Red Cell Distribution Width 15.8 % (11.6-17.2); White Blood Count 8.1 th/mm3 (4.0-11.0)
[2018-01-29 07:43] LABS: Anion Gap 12 meq/L (5-15); Blood Urea Nitrogen 6 mg/dL (7-18); Calcium 8.2 mg/dL (8.5-10.1); Carbon Dioxide 21.5 meq/L (21.0-32.0); Chloride 99 meq/L (98-107); Glomerular Filtration Rate Greater Than 89 mL/min (>89); Glucose,Random 103 mg/dL (74-106); Potassium 4.2 meq/L (3.5-5.1); Sodium 132 meq/L (136-145)
[2018-01-29] MEDS: Senna/Docusate Sodium 8.6/50 MG Tablet PO SCH ×2 (08:20→20:18)
[2018-01-29] MEDS: Folic Acid 1 MG Tablet PO SCH (08:20)
[2018-01-29] MEDS: amLODIPine 5 MG Tablet PO SCH (08:22)
[2018-01-29] MEDS ORDERED: Morphine Sulfate 15 MG SR Tablet PO SCH (12:45)
--- NOTE | 2018-01-29 13:33 | P.PNIM ---
Subjective Interval history: Pt appears to be in pain this morning with moving out of bed to the bedside commode with assistance. Her significant other at bedside is concerned about her not getting adequate pain control although nursing staff reports that when they have been in to inquire about pain that the pt appeared comfortable and denied pain. Her significant other reports that as soon as the nurses leave that the pt complains to him about her pain but is not telling the nurses. She has been using the K-thermia on her hand and feet and reports that these do provide her with some relief. Physical Exam Vital signs: Vital Signs 01/28/18 15:59 01/28/18 20:00 01/29/18 00:00 Temperature 97.9 F 97.1 F L 97.4 F L Pulse Rate 108 H 101 H 101 H Respiratory Rate 17 15 16 Blood Pressure 97/56 L 97/63 L 108/71 Pulse Oximetry 94 L 97 92 L 01/29/18 04:00 01/29/18 08:00 01/29/18 12:00 Temperature 98.0 F 97.4 F L Pulse Rate 105 H 135 H Respiratory Rate 16 19 18 Blood Pressure 119/79 115/75 Pulse Oximetry 92 L 94 L Intake & Output 01/28/18 01/29/18 01/29/18 18:59 06:59 18:59 Intake Total 740 / 740 500 / 500 Balance 740 / 740 500 / 500 Weight 53.4 kg Intake: Oral 740 / 740 500 / 500 Other: # Voids 2 2 Date of Last Bowel Movement 01/23/18 01/25/18 Narrative: GENERAL: 77 year old female A&O in no acute distress SKIN: Warm and dry. dry crusted ulcerations bilateral 3rd fingers CARDIO: Regular RESP: Breath sounds equal bilaterally. ABD: +BS, soft, non-tender, nondistended. EXT: No edema. - Urinary Catheter Management Straight Cath placed during this visit: yes, but has since been removed by the nurse Reason for continuing: Not indwelling catheter Insertion date: 01/22/18 Insertion time: 16:35 Removal date: 01/22/18 Removal time: 07:00 Results - Labs CBC & Chem 7: 01/29/18 06:39 01/29/18 06:39 Laboratory Results - last 24 hr 01/29/18 01/29/18 06:39 06:39 WBC 8.1 RBC 2.95 L Hgb 10.5 L Hct 31.2 L MCV 105.6 H MCH 35.6 H MCHC 33.7 RDW 15.8 Plt Count 400 MPV 7.7 Neut % (Auto) 76.6 H Lymph % (Auto) 12.6 Garfield % (Auto) 7.8 Eos % (Auto) 2.1 Baso % (Auto) 0.9 Neut # (Auto) 6.2 Lymph # (Auto) 1.0 Garfield # (Auto) 0.6 Eos # (Auto) 0.2 Baso # (Auto) 0.1 WBC Differential . Differential Comment Auto diff final Sodium 132 L Potassium 4.2 Chloride 99 Carbon Dioxide 21.5 Anion Gap 12 BUN 6 L Creatinine 0.40 L Estimated GFR Greater than 89 Random Glucose 103 Calcium 8.2 L - Imaging Chest X-Ray 01/25/18 06:00 CONCLUSION: 1. Cardiomegaly with mild pulmonary edema pattern.. 2. Mild bibasilar airspace disease, presumably atelectasis. Assessment and Plan - Assessment (1) Ischemic finger ulcer Code(s): L98.499 - Non-pressure chronic ulcer of skin of other sites with unspecified severity Status: Acute Plan: Ischemic finger ulceration - Symptoms and presentation seem consistent for Raynaud's disease - BARBY 1:320, speckled (12/16/17) - Pt saw rheumatology 01/13/18, Dr. Cortez - Pt previously discharged on Neurontin, NTG oint, prednisone taper, and CCB ( Norvasc) - Patient was hypotensive on arrival but BP is improving, CCB resumed on 01/26 - Pt reported she previously couldn't tolerate the Nitro paste - Daily PT - Pt will likely need SNF at the conclusion of this hospitalization. - Continue methylprednisone, taper - Encouraged patient to wear gloves and socks. - Hand pain alleviated by current pain regiment and warm compresses to hands. Cont. K-Thermia for the pts hands and feet - Discussed with patient resuming nitroglycerin paste to finger tips, she was agreeable to trying - Topical nitro paste applications to finger tips Q8H resumed on 01/27 - Patient receiving Medrol 8 mg, taper started on 01/27, decrease to 4 mg daily. Further wean down to 2mg daily tomorrow. ETOH Abuse - continue MVI, thiamin, and folate - [facility] protocol HTN, essential - Was hypotensive on arrival which has resolved - Cont. Norvasc at 2.5 mg daily Generalized Weakness - daily PT - Pt will need SNF Narcotic Dependency - Pt still with issues with pain control. Trial of Oramorph 15mg BID and continued Roxicodone 10mg q4h prn for break through pain. - Morphine 2mg q4h prn breakthrough pain over 8 but will discontinue this tomorrow. (2) ETOH abuse Code(s): F10.10 - Alcohol abuse, uncomplicated Status: Acute (3) HTN (hypertension) Code(s): I10 - Essential (primary) hypertension Status: Acute (4) Weakness Code(s): R53.1 - Weakness Status: Acute
[2018-01-29] MEDS: Morphine Sulfate 15 MG SR Tablet PO SCH (20:18)
[2018-01-29] MEDS: Famotidine 20 MG Tablet PO SCH (20:19)
[2018-01-29] MEDS: Enoxaparin Inj 40 MG/0.4 ML Syringe SQ SCH (20:22)
[2018-01-30] MEDS: Folic Acid 1 MG Tablet PO SCH (08:16)
[2018-01-30] MEDS: Morphine Sulfate 15 MG SR Tablet PO SCH ×2 (08:16→20:23)
[2018-01-30] MEDS: amLODIPine 5 MG Tablet PO SCH (08:17)
[2018-01-30] MEDS: Senna/Docusate Sodium 8.6/50 MG Tablet PO SCH ×2 (08:17→20:25)
--- NOTE | 2018-01-30 11:26 | P.PNIM ---
Subjective Interval history: Pt sitting up in the chair. She is intermittently refusing the Nitro ointment. She does not recall the multiple times that we have discussed the reasonings for using the topical nitro and explaining to her about likely perfusion pain. She complains of continued pain in her hands Pt has not had a BM in several days She is passing gas Physical Exam Vital signs: Vital Signs 01/29/18 12:00 01/29/18 16:00 01/29/18 19:54 Temperature 97.4 F L 98.1 F 98.0 F Pulse Rate 135 H 120 H 109 H Respiratory Rate 18 17 17 Blood Pressure 115/75 98/72 L 92/63 L Pulse Oximetry 94 L 94 L 94 L 01/30/18 00:00 01/30/18 08:00 Temperature 97.8 F 97.3 F L Pulse Rate 106 H 109 H Respiratory Rate 16 18 Blood Pressure 113/76 92/54 L Pulse Oximetry 97 95 Intake & Output 01/29/18 01/30/18 01/30/18 18:59 06:59 18:59 Intake Total 400 / 400 600 / 600 Balance 400 / 400 600 / 600 Weight 53.5 kg Intake: Oral 400 / 400 600 / 600 Other: # Voids 2 2 Date of Last Bowel Movement 01/25/18 01/25/18 # Bowel Movements 0 Narrative: GENERAL: 77 year old female A&O in no acute distress SKIN: Warm and dry. dry crusted ulcerations bilateral 3rd fingers CARDIO: Regular RESP: Breath sounds equal bilaterally. ABD: +BS, soft, non-tender, nondistended. EXT: No edema. - Urinary Catheter Management Straight Cath placed during this visit: yes, but has since been removed by the nurse Reason for continuing: Not indwelling catheter Insertion date: 01/22/18 Insertion time: 16:35 Removal date: 01/22/18 Removal time: 07:00 Results - Labs CBC & Chem 7: 01/29/18 06:39 01/29/18 06:39 - Imaging Chest X-Ray 01/25/18 06:00 CONCLUSION: 1. Cardiomegaly with mild pulmonary edema pattern.. 2. Mild bibasilar airspace disease, presumably atelectasis. Assessment and Plan - Assessment (1) Ischemic finger ulcer Code(s): L98.499 - Non-pressure chronic ulcer of skin of other sites with unspecified severity Status: Acute Plan: Ischemic finger ulceration - Symptoms and presentation seem consistent for Raynaud's disease - BARBY 1:320, speckled (12/16/17) - Pt saw rheumatology 01/13/18, Dr. Cortez - Pt previously discharged on Neurontin, NTG oint, prednisone taper, and CCB ( Norvasc) - Patient was hypotensive on arrival but BP is improving, CCB resumed on 01/26 - Pt reported she previously couldn't tolerate the Nitro paste - Daily PT - Pt will likely need SNF at the conclusion of this hospitalization. - Continue methylprednisone, taper - Encouraged patient to wear gloves and socks. - Hand pain alleviated by current pain regiment and warm compresses to hands. Cont. K-Thermia for the pts hands and feet - Discussed with patient resuming nitroglycerin paste to finger tips, she was agreeable to trying - Topical nitro paste applications to finger tips Q8H resumed on 01/27. Expressed to her multiple times the reasoning behind using the topical Nitro. - Oramorph 15mg BID added on 01/29/18 - Cont. Roxicodone as needed - Patient receiving Medrol 8 mg, taper started on 01/27, decrease to 4 mg daily. Further wean down to 2mg daily tomorrow. ETOH Abuse - continue MVI, thiamin, and folate - [facility] protocol HTN, essential - Was hypotensive on arrival which has resolved - Cont. Norvasc at 2.5 mg daily Generalized Weakness - daily PT - Pt will need SNF Narcotic Dependency - Pt still with issues with pain control. - Pt started on Oramorph 15mg BID and continued Roxicodone 10mg q4h prn for break through pain. The exam, history, and the medical decision-making described in the above note were completed with the assistance of the mid-level provider. I reviewed and agree with the findings presented. I attest that I had a [id number] encounter with the patient on the same day, and personally performed and documented my assessment and findings in the medical record. pt with Raynauds with digital ischemia of bother hands and intermittent mottling of plantar aspect of both feet. taper off steroids. topical nitro to fingertips as she will allow. stop norvasc with lower bp. added long acting morphine to her prn roxicodone to control pain. discussed keeping fingers/feet warm with heat/heating pad, gloves,etc with pt. plan for snf. (2) ETOH abuse Code(s): F10.10 - Alcohol abuse, uncomplicated Status: Acute (3) HTN (hypertension) Code(s): I10 - Essential (primary) hypertension Status: Acute (4) Weakness Code(s): R53.1 - Weakness Status: Acute
[2018-01-30] MEDS: Enoxaparin Inj 40 MG/0.4 ML Syringe SQ SCH (20:22)
[2018-01-30] MEDS: Famotidine 20 MG Tablet PO SCH (20:25)
[2018-01-31] MEDS: Folic Acid 1 MG Tablet PO SCH (08:56)
[2018-01-31] MEDS: Morphine Sulfate 15 MG SR Tablet PO SCH ×2 (08:59→21:12)
[2018-01-31] MEDS: Senna/Docusate Sodium 8.6/50 MG Tablet PO SCH ×2 (08:59→21:13)
--- NOTE | 2018-01-31 09:08 | P.PNIM ---
Subjective Interval history: Pt is up to the bedside commode She reports that she feels that the pain is slightly better today Pt had a large BM this morning Denies any abd pain. Physical Exam Vital signs: Vital Signs 01/30/18 12:00 01/30/18 16:00 01/30/18 20:00 Temperature 97.5 F L 98.1 F 97.5 F L Pulse Rate 131 H 115 H 101 H Respiratory Rate 19 17 16 Blood Pressure 110/84 99/64 L 98/60 L Pulse Oximetry 83 L 97 93 L 01/30/18 23:38 Temperature 97.9 F Pulse Rate 101 H Respiratory Rate 16 Blood Pressure 106/73 Pulse Oximetry 93 L Intake & Output 01/30/18 01/31/18 01/31/18 18:59 06:59 18:59 Intake Total 550 / 550 750 / 750 Balance 550 / 550 750 / 750 Weight 53.5 kg Intake: Oral 550 / 550 750 / 750 Other: # Voids 4 2 # Bowel Movements 0 Narrative: GENERAL: 77 year old female A&O in no acute distress SKIN: Warm and dry. dry crusted ulcerations bilateral 3rd fingers CARDIO: Regular RESP: Breath sounds equal bilaterally. Faint crackles at the bases bilaterally ABD: +BS, soft, non-tender, nondistended. EXT: No edema. - Urinary Catheter Management Straight Cath placed during this visit: yes, but has since been removed by the nurse Reason for continuing: Not indwelling catheter Insertion date: 01/22/18 Insertion time: 16:35 Removal date: 01/22/18 Removal time: 07:00 Results - Labs CBC & Chem 7: 01/29/18 06:39 01/29/18 06:39 - Imaging Chest X-Ray 01/25/18 06:00 CONCLUSION: 1. Cardiomegaly with mild pulmonary edema pattern.. 2. Mild bibasilar airspace disease, presumably atelectasis. Assessment and Plan - Assessment (1) Ischemic finger ulcer Code(s): L98.499 - Non-pressure chronic ulcer of skin of other sites with unspecified severity Status: Acute Plan: Ischemic finger ulceration - Symptoms and presentation seem consistent for Raynaud's disease - BARBY 1:320, speckled (12/16/17) - Pt saw rheumatology 01/13/18, Dr. Cortez - Pt previously discharged on Neurontin, NTG oint, prednisone taper, and CCB ( Norvasc) - Patient was hypotensive on arrival but BP is improving, CCB resumed on 01/26 - Pt reported she previously couldn't tolerate the Nitro paste - Daily PT - Hand pain improved by current pain regiment and warm compresses to hands. Cont. K-Thermia for the pts hands and feet - Discussed with patient resuming nitroglycerin paste to finger tips, she was agreeable to trying - Topical nitro paste applications to finger tips Q8H resumed on 01/27. Expressed to her multiple times the reasoning behind using the topical Nitro. - Oramorph 15mg BID added on 01/29/18 - Cont. Roxicodone as needed - Discussed keeping fingers/feet warm with heat/heating pad, gloves, etc. - We will add a 1:10 Betadine and water wash to soak the pts fingertips in twice daily to try to keep the area more sterile. - Patient receiving Medrol 8 mg, taper started on 01/27, decrease to 4 mg daily. Further wean down to 2mg daily tomorrow. - Pt will likely need SNF at the conclusion of this hospitalization. ETOH Abuse - continue MVI, thiamin, and folate - [facility] protocol HTN, essential - Was hypotensive on arrival which has resolved - Norvasc at 2.5 mg daily stopped on 01/30 due to hypotension Generalized Weakness - daily PT - Pt will need SNF Narcotic Dependency - Pt still with issues with pain control. - Pt started on Oramorph 15mg BID and continued Roxicodone 10mg q4h prn for break through pain. The exam, history, and the medical decision-making described in the above note were completed with the assistance of the mid-level provider. I reviewed and agree with the findings presented. I attest that I had a [id number] encounter with the patient on the same day, and personally performed and documented my assessment and findings in the medical record. raynauds with digital ischemia and intermittent pedal ischemia. discussed necrotic ulcerations with dr Gorman Hand surgeon. recommended only 1 to 10 mix of betadine/water to soak fingers. cont topical nitrates and long acting morphine with prn roxicodone. heat to fingers and feet as much as possible. plan for snf/rehab on Friday. (2) ETOH abuse Code(s): F10.10 - Alcohol abuse, uncomplicated Status: Acute (3) HTN (hypertension) Code(s): I10 - Essential (primary) hypertension Status: Acute (4) Weakness Code(s): R53.1 - Weakness Status: Acute
[2018-01-31] MEDS: Enoxaparin Inj 40 MG/0.4 ML Syringe SQ SCH (21:11)
[2018-01-31] MEDS: Famotidine 20 MG Tablet PO SCH (21:13)
[2018-02-01] MEDS: Folic Acid 1 MG Tablet PO SCH (09:04)
[2018-02-01] MEDS: Morphine Sulfate 15 MG SR Tablet PO SCH ×2 (09:04→20:50)
[2018-02-01] MEDS: Senna/Docusate Sodium 8.6/50 MG Tablet PO SCH ×2 (09:08→20:52)
--- NOTE | 2018-02-01 10:32 | P.PNIM ---
Subjective Interval history: Pt without any new complaints this morning She is sitting up in the chair with her hand on the heating pad and feet wrapped in warm blankets Nurse reports that yesterday afternoon the pts BP was trending quite low for a short period of time with systolic in the 70's but that it did improve to systolic in the 100's Physical Exam Vital signs: Vital Signs 01/31/18 11:38 01/31/18 12:00 01/31/18 16:00 Temperature 98.4 F Pulse Rate 120 H Respiratory Rate 17 17 20 Blood Pressure 107/64 Pulse Oximetry 96 01/31/18 20:00 02/01/18 00:00 02/01/18 04:00 Temperature 98.8 F 97.8 F 98.2 F Pulse Rate 119 H 58 L 99 H Respiratory Rate 19 18 18 Blood Pressure 96/60 L 111/74 117/74 Pulse Oximetry 94 L 93 L 93 L 02/01/18 08:00 Temperature 98.1 F Pulse Rate 101 H Respiratory Rate 17 Blood Pressure 112/74 Pulse Oximetry 95 Intake & Output 01/31/18 02/01/18 02/01/18 18:59 06:59 18:59 Intake Total 320 / 320 Balance 320 / 320 Intake: Oral 320 / 320 Other: # Voids 1 Date of Last Bowel Movement 01/31/18 01/31/18 # Bowel Movements 3 1 Narrative: GENERAL: 77 year old female A&O in no acute distress SKIN: Warm and dry. dry crusted ulcerations bilateral 3rd fingers CARDIO: Regular RESP: Breath sounds equal bilaterally. ABD: +BS, soft, non-tender, nondistended. EXT: No edema. - Urinary Catheter Management Straight Cath placed during this visit: yes, but has since been removed by the nurse Reason for continuing: Not indwelling catheter Insertion date: 01/22/18 Insertion time: 16:35 Removal date: 01/22/18 Removal time: 07:00 Results - Labs CBC & Chem 7: 01/29/18 06:39 01/29/18 06:39 Laboratory Results - last 24 hr 01/31/18 16:38 POC Glucose 167 H - Imaging Chest X-Ray 01/25/18 06:00 CONCLUSION: 1. Cardiomegaly with mild pulmonary edema pattern.. 2. Mild bibasilar airspace disease, presumably atelectasis. Assessment and Plan - Assessment (1) Ischemic finger ulcer Code(s): L98.499 - Non-pressure chronic ulcer of skin of other sites with unspecified severity Status: Acute Plan: Ischemic finger ulceration - Symptoms and presentation seem consistent for Raynaud's disease - BARBY 1:320, speckled (12/16/17) - Pt saw rheumatology 01/13/18, Dr. Cortez - Pt previously discharged on Neurontin, NTG oint, prednisone taper, and CCB ( Norvasc) - Patient was hypotensive on arrival but BP is improving, CCB resumed on 01/26 - Pt reported she previously couldn't tolerate the Nitro paste - Daily PT - Hand pain improved by current pain regiment and warm compresses to hands. Cont. K-Thermia for the pts hands and feet - Discussed with patient resuming nitroglycerin paste to finger tips, she was agreeable to trying - Topical nitro paste applications to finger tips Q8H resumed on 01/27. Expressed to her multiple times the reasoning behind using the topical Nitro. - Oramorph 15mg BID added on 01/29/18 - Cont. Roxicodone as needed - Discussed keeping fingers/feet warm with heat/heating pad, gloves, etc. - A 1:10 Betadine and water wash to soak the pts fingertips in twice daily to try to keep the area more sterile added on 01/31. - Patient receiving Medrol 8 mg, taper started on 01/27, decrease to 4 mg daily. Further weaned down to 2mg daily on 01/29. The dose is decreased to 1mg daily on 02/01 and we will continue this dose for the next 3 days and then stop. - Anticipate d/c to SNF tomorrow. - We will continue with the long acting Morphine and PRN Roxicodone - Pt will need to continue with the heating pad to the hands and feet all throughout the day alternating. - Pt will need to followup with her PCP, Dr. Wood, after discharge from rehab. ETOH Abuse - continue MVI, thiamin, and folate - [facility] protocol HTN, essential - Was hypotensive on arrival which has resolved - Norvasc at 2.5 mg daily stopped on 01/30 due to hypotension Generalized Weakness - daily PT - Pt will need SNF Narcotic Dependency - Pt still with issues with pain control. - Pt started on Oramorph 15mg BID and continued Roxicodone 10mg q4h prn for break through pain. (2) ETOH abuse Code(s): F10.10 - Alcohol abuse, uncomplicated Status: Acute (3) HTN (hypertension) Code(s): I10 - Essential (primary) hypertension Status: Acute (4) Weakness Code(s): R53.1 - Weakness Status: Acute - Attending Attestation Patient examined. Assessment and plan formulated with Carol AGUSTIN I agree with the above.
[2018-02-01] MEDS: Metoprolol Tartrate 25 MG Tablet PO SCH ×2 (14:20→20:46)
[2018-02-01] MEDS: Famotidine 20 MG Tablet PO SCH (20:46)
[2018-02-01] MEDS: Enoxaparin Inj 40 MG/0.4 ML Syringe SQ SCH (20:51)
[2018-02-02] MEDS: Metoprolol Tartrate 25 MG Tablet PO SCH (09:18)
[2018-02-02] MEDS: Folic Acid 1 MG Tablet PO SCH (09:19)
[2018-02-02] MEDS: Senna/Docusate Sodium 8.6/50 MG Tablet PO SCH (09:19)
[2018-02-02] MEDS: Morphine Sulfate 15 MG SR Tablet PO SCH (09:20)
[2018-02-02 09:26] VITALS: TEMP 97.7
[2018-02-02 09:40] VITALS: BP 127/90; PULSE 97; O2SAT 93
[2018-02-02 12:04] VITALS: RESP 16
--- NOTE | 2018-02-02 13:18 | P.DS ---
<Carol Enamorado E - Last Filed: 02/02/18 13:05> Date of admission: 01/22/18 20:04 Primary care physician: Daniel Wood MD, PhD Attending physician on discharge: Jese Montez Anticipated date of discharge: 02/02/18 Brief History from admission: 77-year-old female presents with a complaint of weakness. 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 The patient's friend called the primary doctor, Dr. Wood, and reported the patient had not urinated for a day and a half, eaten or drank anything. No loss of consciousness or fall. 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 Patient was started with steroids at one point which seemed to not make much of a difference. No fever. Patient has been unable to get out of bed due to nonfocal weakness. She denies fever chills or night sweats. DS: Diagnosis - Discharge Diagnosis (1) Ischemic finger ulcer Status: Acute (2) ETOH abuse Status: Acute (3) HTN (hypertension) Status: Acute (4) Weakness Status: Acute DS: Medications - Discharge Medications Prescriptions: metoprolol tartrate 12.5 mg PO DAILY 30 Days #15 tab morphine 15 mg PO BID #14 tab nitroglycerin [Nitro-Bid] 0.5 inch TOPICAL Q8HR 30 Days g oxycodone 10 mg PO Q4H PRN #18 tab PRN Reason: Break through pain over 6 sennosides-docusate sodium [Senna Plus] 1 tab PO BID 30 Days #60 tab thiamine HCl (vitamin B1) 100 mg PO DAILY 30 Days #30 tab DS: Summary Hospital Course: Ischemic finger ulceration - Pt is a 77 y/o WF who presented to the ED at [facility] on 01/22/18 with complaints of weakness and worsening pain related to her ischemic fingertips on bilateral hand. It is felt that the pts symptoms and presentation seem consistent for Raynaud's disease. BARBY 1:320, speckled (12/16/17). Pt saw rheumatology 01/13/18, Dr. Cortez. Pt previously discharged on Neurontin, NTG oint, prednisone taper , and CCB (Norvasc). Patient was hypotensive on arrival but BP is improving, CCB resumed on 01/26. Pt reported she previously couldn't tolerate the Nitro paste due to pain and wasn't using it at home. Discussed with patient resuming nitroglycerin paste to finger tips, she was agreeable to trying the topical nitro paste applications to finger tips Q8H resumed on 01/27. Expressed to her multiple times the reasoning behind using the topical Nitro. Hand pain improved with warm compresses to hands. Cont. K-Thermia for the pts hands and feet Long acting pain control was added, Oramorph 15mg BID, on 01/29/18 and we will continue with the Roxicodone as needed. Discussed importance of keeping fingers/ feet warm with heat/heating pad, gloves, etc. A 1:10 Betadine and water wash to soak the pts fingertips in twice daily to try to keep the area more sterile added on 01/31 per recommendations from hand surgeon. Patient has been receiving Medrol 8 mg daily prior to admission. A taper was started on 01/27, decrease to 4 mg daily. Further weaned down to 2mg daily on 01/29. The dose is decreased to 1mg daily on 02/01 and we will continue this dose for the next 3 days and then stop. We will continue with the long acting Morphine and PRN Roxicodone. Pt will need to continue with the heating pad to the hands and feet all throughout the day alternating. Pt will need to followup with her PCP, Dr. Wood, after discharge from rehab. Pt has an appt with [facility] with a Dr. Giuseppe Lopez on 02-12-18 @ 0700AM. ETOH Abuse - Pt was on CIWA protocol during admission. No evidence of withdrawal symptoms. HTN, essential - Pt was hypotensive on arrival which did improve and Norvasc was added back at 2.5 mg daily. This had to be stopped on 01/30 due to some hypotension. Pt was on Metoprolol 25mg po BID prior to admission and the pt was mildly tachycardic during admission. The Metoprolol was added back at a decreased dose of 12.5mg po BID with parameters to hold for systolic BP at 100 or less. This will be continued at discharge. Generalized Weakness - Pt is to continue daily PT at SNF Narcotic Dependency - Pt started on Oramorph 15mg BID and continued Roxicodone 10mg q4h prn for break through pain. - Time Spent with Patient Total time spent providing and/or coordinating discharge services: Greater than 30 minutes - Quality: VTE Deep Vein Thrombosis/Pulmonary Embolism Present on Admission: No Exam Vital signs: Vital Signs 02/01/18 16:00 02/01/18 20:00 02/02/18 04:00 Temperature 97.5 F L 98.7 F 98.0 F Pulse Rate 108 H 101 H 105 H Respiratory Rate 17 18 18 Blood Pressure 105/62 96/66 L 109/74 Pulse Oximetry 97 94 L 94 L 02/02/18 08:00 02/02/18 10:00 Temperature 97.7 F Pulse Rate 97 H Respiratory Rate 17 16 Blood Pressure 127/90 Pulse Oximetry 93 L Intake & Output 02/01/18 02/02/18 02/02/18 18:59 06:59 18:59 Intake Total 240 / 240 Balance 240 / 240 Intake: Oral 240 / 240 Other: # Voids 2 2 Date of Last Bowel Movement 01/31/18 02/02/18 # Bowel Movements 1 Results Procedures completed during hospitalization: See above - Impressions ITS Impressions Chest X-Ray 01/25/18 06:00 CONCLUSION: 1. Cardiomegaly with mild pulmonary edema pattern.. 2. Mild bibasilar airspace disease, presumably atelectasis. <Jese Montez - Last Filed: 02/14/18 20:00> Date of admission: 01/22/18 20:04 Primary care physician: Daniel Wood MD, PhD DS: Diagnosis - Discharge Diagnosis (1) Ischemic finger ulcer Status: Acute (2) ETOH abuse Status: Acute (3) HTN (hypertension) Status: Acute (4) Weakness Status: Acute DS: Summary Hospital Course: Patient examined. Assessment and plan formulated with Carol Enamorado PA-C. I agree with the above. - Time Spent with Patient Total time spent providing and/or coordinating discharge services: Results - Impressions ITS Impressions Chest X-Ray 01/25/18 06:00 CONCLUSION: 1. Cardiomegaly with mild pulmonary edema pattern.. 2. Mild bibasilar airspace disease, presumably atelectasis. Discharge Plan - Discharge Order Discharge Orders: Discharge Order (Routine); Ordered 02/01/18 Ordered By: Boyd Frias - Discharge Details Anticipated Discharge Date: 02/02/18 Discharge Comment: Followup with Dr. Wood within 1 week after discharge fron rehab - Physicians Team Primary Care Provider: Daniel Wood Attending Provider: Jese Montez Other Providers: Jese Montez, ; [facility]
== END 2018-02-02 12:31 ==
LOC: NEDA 14:35 → NEPE 14:35 → HIMC 20:55 → N07 01-24 14:24
PROVIDERS: ADMIT Hospitalist; ATTEND Hospitalist